=== PATIENT | female | born 1945 | race Caucasian/White ===

== ENCOUNTER 2017-12-29 01:48 | Outpatient (CLI) | payer MEDICARE, OTHER, SELFPAY ==
[2017-12-29 08:58] LABS: Anion Gap 9.4 mmol/L (3-11); BUN 20 mg/dL (7-18); CO2 29.6 mmol/L (21.0-32.0); CREATININE 1.24 mg/dL (0.55-1.02); Calcium 9.2 mg/dL (8.5-10.1); Chloride 104 mmol/L (98-107); Cholesterol 218 mg/dL (50-200); Estimated GFR 42.28 (mL/min/1.73m2); Glucose 97 mg/dL (70-100); HDL Cholesterol 53 mg/dL (40-60); LDL CHOLESTEROL 143 mg/dL (<100); Sodium 143 mmol/L (136-145); Triglyceride 132 mg/dL (30-150)
== END 2017-12-29 02:08 ==
PROVIDERS: PCP Family Medicine; Visit Provider Family Medicine
DX: I10 Essential (primary) hypertension (principal)
CPT/HCPCS: 36415; 80048; 80061; 83721

== ENCOUNTER 2018-01-08 00:46 | Outpatient (CLI) | payer MEDICARE, OTHER, SELFPAY ==
--- NOTE | 2018-01-08 15:22 | DI.MAMMO_ITS ---
SYMPTOM/DIAGNOSIS: SCREENING, Z12.31 MAMMOGRAMS: Mammograms were interpreted according to the usual protocol including computer analysis with CAD system, tomosynthesis and C view imaging. The breasts are of moderate density with fairly symmetrical distribution of fibroglandular tissue. There are multiple small, well circumscribed nodules seen in each breast which have been present on the previous examinations. There is a new 11 mm. in diameter, ovoid left retroareolar breast mass. This is not ideally visualized on routine views. Spot compression views and breast ultrasound are requested to evaluate this new retroareolar mass. CONCLUSION: New left retroareolar mass, well circumscribed and likely benign but malignancy not excluded. Spot compression views and ultrasound of the left breast recommended for further evaluation. Category 0. Breast density, category B. MQSA ASSESSMENT OF FINDINGS: Incomplete: Needs additional imaging evaluation. Category 0. Patient will receive a letter notifying them of these results. BI-RADS category B. There are scattered areas of fibroglandular density.
== END 2018-01-08 01:06 ==
PROVIDERS: PCP Family Medicine; Visit Provider Family Medicine
DX: Z12.31 Encounter for screening mammogram for malignant neoplasm of breast (principal); R92.8 Other abnormal and inconclusive findings on diagnostic imaging of breast
CPT/HCPCS: 77063; 77067

== ENCOUNTER 2018-01-14 01:08 | Outpatient (CLI) | payer MEDICARE, OTHER, SELFPAY ==
--- NOTE | 2018-01-14 11:28 | DI.COMBO_ITS ---
SYMPTOM/DIAGNOSIS: F/U ABNL MAMMO, NEW LT BREAST MASS LEFT BREAST ADDITIONAL VIEWS AND LEFT BREAST ULTRASOUND: Additional images are interpreted according to the usual protocol including tomosynthesis and 2D imaging. Compression spot films of the left breast were obtained today and reveal a small , well circumscribed area of nodularity in the subareolar portion of the breast. At ultrasound, a cluster of small cysts is demonstrated. There is no apparent solid lesion and nothing to suggest a malignancy. SUMMARY: A small cluster of subareolar cysts are demonstrated. A follow up ultrasound examination in 6 months is suggested for further review. Category 3. Breast density, category B. MQSA ASSESSMENT OF FINDINGS: Probably benign. Six month follow-up recommended. Category 3. Patient will receive a letter notifying them of these results. BI-RADS category B. There are scattered areas of fibroglandular density.
== END 2018-01-14 01:28 ==
PROVIDERS: PCP Family Medicine; Visit Provider Family Medicine
DX: R92.8 Other abnormal and inconclusive findings on diagnostic imaging of breast (principal); N60.12 Diffuse cystic mastopathy of left breast
CPT/HCPCS: 76642; 77063; 77067

== ENCOUNTER 2018-06-29 01:45 | Outpatient (CLI) | payer MEDICARE, OTHER, SELFPAY ==
[2018-06-29 11:35] LABS: Anion Gap 8.8 mmol/L (3-11); BUN 15 mg/dL (7-18); CO2 29.2 mmol/L (21.0-32.0); CREATININE 1.06 mg/dL (0.55-1.02); Chloride 104 mmol/L (98-107); Estimated GFR 50.54 (mL/min/1.73m2); Glucose 102 mg/dL (70-100); Potassium 4.3 mmol/L (3.5-5.1); Sodium 142 mmol/L (136-145); Vitamin B12 1322 pg/mL (193-986)
[2018-06-29 14:11] LABS: Vitamin D 25 Total 38.1 ng/ml (30-100)
== END 2018-06-29 02:05 ==
PROVIDERS: PCP Family Medicine; Visit Provider Family Medicine
DX: E55.9 Vitamin D deficiency, unspecified (principal); M54.30 Sciatica, unspecified side; N18.9 Chronic kidney disease, unspecified
CPT/HCPCS: 36415; 80048; 82306; 82607

== ENCOUNTER 2018-07-13 00:26 | Outpatient (CLI) | payer MEDICARE, OTHER, SELFPAY ==
--- NOTE | 2018-07-13 10:16 | DI.US_ITS ---
SYMPTOM/DIAGNOSIS: F/U ABNL MAMMO AND US, 6 MONTH F/U, R92.8 LEFT BREAST ULTRASOUND: Comparison is made with 01/14/18. There are again seen collections of simple cysts in the retroareolar region of the left breast. These all appear stable compared to the prior examination. No solid mass is seen sonographically. IMPRESSION: Stable left breast cysts. The patient should return in 6 months for yearly screening mammogram. Category 2. MQSA ASSESSMENT OF FINDINGS: Negative with benign findings. Category 2. Patient will receive a letter notifying them of these results.
== END 2018-07-13 00:46 ==
PROVIDERS: PCP Family Medicine; Visit Provider Family Medicine
DX: Z12.31 Encounter for screening mammogram for malignant neoplasm of breast (principal); R92.8 Other abnormal and inconclusive findings on diagnostic imaging of breast; N60.12 Diffuse cystic mastopathy of left breast
CPT/HCPCS: 76642

== ENCOUNTER 2018-12-28 02:34 | Outpatient (CLI) | payer MEDICARE, OTHER, SELFPAY ==
[2018-12-28 09:45] LABS: Anion Gap 8.7 mmol/L (3-11); BUN 18 mg/dL (7-18); CO2 27.3 mmol/L (21.0-32.0); CREATININE 1.07 mg/dL (0.55-1.02); Calcium 8.8 mg/dL (8.5-10.1); Chloride 108 mmol/L (98-107); Estimated GFR 49.99 (mL/min/1.73m2); Glucose 100 mg/dL (70-100); Sodium 144 mmol/L (136-145)
== END 2018-12-28 02:54 ==
PROVIDERS: PCP Family Medicine; Visit Provider Family Medicine
DX: N18.9 Chronic kidney disease, unspecified (principal)
CPT/HCPCS: 36415; 80048

== ENCOUNTER 2019-01-21 02:10 | Outpatient (CLI) | payer MEDICARE, OTHER, SELFPAY ==
--- NOTE | 2019-01-21 11:31 | DI.MAMMO_ITS ---
EXAM: MAMMO SCREENING CLINICAL HISTORY: screening Z12.39 TECHNIQUE: Mammograms were interpreted according to the usual protocol including computer analysis w [employer] CAD system, tomosynthesis and C-view imaging. COMPARISON: December 2017 FINDINGS: The breasts are of moderate density with fairly symmetrical distribution of fibroglandular tissue. M ultiple areas of nodularity are noted bilaterally, unchanged in appearance in comparison with previou s examinations including December 2017. No new mass or clumped microcalcification seen. IMPRESSION: No specific evidence of malignancy at this time. Routine screening examinations are suggested at year ly intervals due to the family history of breast carcinoma. Category 1, breast density category B. BI-RADS Cat 1 - Negative Breast Density - Category B - Scattered areas of fibroglandular density
== END 2019-01-21 02:30 ==
PROVIDERS: PCP Family Medicine; Visit Provider Family Medicine
DX: Z12.31 Encounter for screening mammogram for malignant neoplasm of breast (principal); Z80.3 Family history of malignant neoplasm of breast
CPT/HCPCS: 77063; 77067

== ENCOUNTER 2019-04-16 01:57 | Outpatient (CLI) | payer MEDICARE, OTHER, SELFPAY ==
--- NOTE | 2019-04-16 09:38 | DI.RAD_ITS ---
EXAM: XR LUMBAR SPINE COMPLETE CLINICAL HISTORY: New sided siactica and foot drop, previous surg. M21.372 FOOT DROP TECHNIQUE: COMPARISON: No exams were available for comparison FINDINGS: Five views were obtained. There are moderate degenerative changes of the SI joints. There is mild m ultilevel loss of disc space height. There are very prominent hypertrophic changes involving vertebr al endplates and facet joints throughout the lumbar region, the most prominent endplate osteophytes a re in the upper to mid lumbar spine. No evidence of spondylolysis or spondylolisthesis. No acute fr acture seen. IMPRESSION: Severe hypertrophic degenerative changes, no acute process.
== END 2019-04-16 02:17 ==
PROVIDERS: PCP Family Medicine; Visit Provider Family Medicine
DX: M21.372 Foot drop, left foot (principal); M54.42 Lumbago with sciatica, left side; M53.3 Sacrococcygeal disorders, not elsewhere classified; M47.26 Other spondylosis with radiculopathy, lumbar region
CPT/HCPCS: 72110

== ENCOUNTER 2019-04-30 03:48 | Outpatient (CLI) | payer MEDICARE, OTHER, SELFPAY ==
--- NOTE | 2019-04-30 11:45 | DI.MRI_ITS ---
EXAM: MR LUMBAR SPINE WO CLINICAL HISTORY: New onset L foot drop, L sided sciatica, M21.372, BILAT LEG PAIN TECHNIQUE: Multiplanar multisequence MRI was performed. COMPARISON: MRI - LUMBAR SPINE WO CONTRAST from 02/29/2016 XR LUMBAR SPINE COMPLETE from 04/16/2019 FINDINGS: The conus medullaris has a normal appearance and location. At L5-S1, there is disc desiccation. There are endplate degenerative signal changes. There is a dif fuse disc bulge. There are hypertrophic changes of the facets and ligament flavum. This causes mild to moderate central spinal canal stenosis. There is moderate right and mild left neural foraminal s tenosis. At L4-L5, there is disc desiccation. There is a diffuse disc bulge. There are hypertrophic changes of the facet joints. There is a synovial cyst arising from the right facet joints. It extends into the central spinal canal. These all contribute to cause mild to moderate narrowing of the central sp inal canal. There is a left lateral disc herniation. This causes severe left neural foraminal steno sis. There is moderately severe right neural foraminal stenosis. At L3-L4, there is disc desiccation. There is a diffuse disc bulge. There does appear to be a small central disc herniation. There are degenerative changes of the facets and ligamentum flavum. These all contribute to cause moderately severe central spinal canal stenosis. There is mild bilateral ne ural foraminal stenosis. At L2-L3, there is degenerative disc disease. There is a small central disc herniation. There are d egenerative changes of the facets. These all contribute to cause mild narrowing of the central spina l canal. There is no significant right neural foraminal stenosis. There is mild left neural foramin al stenosis. At L1-L2, there is disc desiccation. There are hypertrophic changes of the facets and ligamentum fla vum. These cause mild narrowing of the central spinal canal. No significant neural foraminal stenos is is seen. The patient has had an L5 laminectomy. IMPRESSION: Degenerative changes throughout the lumbar spine resulting in central spinal canal and neural foramin al stenosis as described above. Findings are most marked at L2-3, L3-4, and L4-5.
== END 2019-04-30 04:08 ==
PROVIDERS: PCP Family Medicine; Visit Provider Family Medicine
DX: M21.372 Foot drop, left foot (principal); M54.42 Lumbago with sciatica, left side; M79.604 Pain in right leg; M79.605 Pain in left leg; M51.17 Intervertebral disc disorders with radiculopathy, lumbosacral region; M48.07 Spinal stenosis, lumbosacral region
CPT/HCPCS: 72148

== ENCOUNTER 2019-08-13 23:24 | Observation (INO) | payer MEDICARE, OTHER, SELFPAY ==
--- NOTE | 2019-08-13 00:09 | DI.RAD_ITS ---
EXAM: XR PORTABLE CHEST AP CLINICAL HISTORY: general weaknes, ?pneumonia. TECHNIQUE: 2D digital imaging was performed. COMPARISON: CR CHEST 2 VIEWS PA,LAT from 01/28/2013 FINDINGS: LUNGS: Clear. No pleural abnormality seen. HEART: Normal. MEDIASTINUM: Normal. OTHER FINDINGS: None. IMPRESSION: No acute pulmonary findings. DATA REPOSITORY: RADIATION DOSE DELIVERED:
[2019-08-13 23:19] VITALS: BP 121/68; PULSE 115; RESP 16; TEMP 36.7; O2SAT 94
--- NOTE | 2019-08-13 23:36 | W.ED.GENAD ---
Discharge Plan Disposition Patient Disposition: [facility] INPATIENT Condition: Stable Discharge Details Chief Complaint: GenMedical Clinical Impression: Ambulatory dysfunction, Post-op pain Primary Care Provider: Matt Doss ED Provider: Magno Heredia Home Meds and New Rx's Prescriptions: No Action chgsuqjmzjyz-[id number]-jcomnh Tablet 1 tab PO HS RF: 0 calcium citrate-vitamin D3 [Citracal + D Maximum] 315 mg- 250 unit tablet 1 tab PO HS RF: 0 hydrochlorothiazide 25 mg tablet 12.5 mg PO HS RF: 0 Aleve PM 220-25 mg tablet 1 tab PO QPM PRNRF: 0 meclizine 25 MG tablet 25 mg PO PRN Qty: 20 RF: 2 acetaminophen 500 MG tablet 1,000 mg PO Q8H PRN RF: 0 tramadol 50 mg tablet 50 mg PO TID PRN (Reason: pain) Qty: 15 RF: 0 oxycodone 5 mg tablet 5 mg PO Q4H PRNRF: 0 sennosides-docusate sodium [Senna Plus] 8.6-50 mg tablet 2 tab-cap PO BID PRNRF: 0 polyethylene glycol 3350 17 gram powder in packet 17 gm PO BID RF: 0 gabapentin 300 mg capsule 300 mg PO QHS RF: 0 Medical Decision Making 74 yo female with hx of HTN, ckd, hld, who underwent posterior decompression L3-S1 decompressoin at [facility] on 08/09 and d/c'd to home with no home health comes in with with concern that he cannot care for her at home. She has had some intermittent confusion per described as not remembering if she took her meds specifically if she has taken her oxycodone or not. She is currently caox4 with no focal deficits, states has had general weakness and low back pain since d/c. Denies fevers, chills, headache, chest pain, shortness of breath, abdominal pain. Has no new focal motor or sensation deficits, has chronic left foot drop. She has well healing back incisions without evidence of infection. called ems as he did not feel he could continue to lift her and care for her. I suspect that she is generally weak and having pain from the surgery and side effect of the oxycodone could be causing the weakness and requires rehab. Will evaluate for possible uti and charlette and monitor. Given no focal deficits and no head trauma or headache do not feel head imaging indicated labs show wbc of 16 and crp of 17, esr pending, otherwise no significant findings and she remains stable. xray and UA unremarkable. Will discuss with spine at [facility] for consideration of possible SEA spoke with Dr. Craig at [facility] who was in the OR for this case. She did not feel transfer emergently for MRI was indicated given no focal deficits on exam and lab results could be expected post op and no fever. Spoke with Dr. Limon who will admit for ambulatory dysfunction post op pain and PT eval in AM Differential Diagnosis Differential Diagnosis: medication side effect, uti, dehydration Medical Records Medical records reviewed: Yes I reviewed the patient's medical records. Imaging Data Radiologic Study: Attestation: I personally reviewed and interpreted this imaging study as follows: Imaging: X-Ray Radiologist's impression: IMPRESSION: No evidence for acute abnormality in the chest. Lab Data Lab results reviewed: Yes I reviewed the patient's lab results. HPI General Mode of arrival: EMS. Date/Time Provider Initiated Documentation: 08/13/19 23:28. Limitations to Documentation: no limitations. Information obtained by: patient and family. History of Present Illness 74 year old F presents to the emergency department with the chief complaint of general weakness and low back pain, described as moderate, and it has been constant. No relieving factors improve symptom(s), No exacerbating factors reported . Related Data Home Medications Medication Instructions Recorded Confirmed meclizine 25 mg PO PRN #20 tab 11/22/14 08/13/19 acetaminophen 1,000 mg PO Q8H PRN 06/06/16 08/13/19 calcium citrate 315 mg-vitamin D3 1 tab PO HS 12/31/18 08/13/19 250 unit tablet dbqeuodzlhyn-qhuzbpfg-eocqfs 1 tab PO HS 12/31/18 08/13/19 hydrochlorothiazide 25 mg tablet 12.5 mg PO HS tab 04/16/19 08/13/19 naproxen 220 mg-diphenhydramine 25 1 tab PO QPM PRN 04/16/19 08/13/19 mg tablet tramadol 50 mg tablet 50 mg PO TID PRN #15 tab 07/08/19 08/13/19 gabapentin 300 mg capsule 300 mg PO QHS 08/12/19 08/13/19 oxycodone 5 mg tablet 5 mg PO Q4H PRN 08/12/19 08/13/19 polyethylene glycol 3350 17 gram 17 gm PO BID 08/12/19 08/13/19 oral powder packet sennosides 8.6 mg-docusate sodium 2 tab-cap PO BID PRN tab 08/12/19 08/13/19 50 mg tablet Previous Rx's Medication Instructions Recorded tramadol 50 mg tablet 50 mg PO TID PRN #15 tab 07/08/19 Allergies Allergy/AdvReac Type Severity Reaction Status Date / Time atorvastatin AdvReac Intermediate cramps Verified 08/13/19 23:27 pravastatin AdvReac Intermediate stiffness Verified 08/13/19 23:27 General Stated Complaint: GenMedical ÓSCAR: 3 Review of Systems All systems reviewed & are unremarkable except as noted in HPI and below Constitutional Constitutional: Denies chills and Denies fever(s) Cardiovascular Cardiovascular: Denies chest pain and Denies dyspnea Respiratory Respiratory: Denies cough and Denies dyspnea Gastrointestinal Gastrointestinal: Denies abdominal pain, Denies nausea and Denies vomiting Musculoskeletal Musculoskeletal: Denies joint swelling Psychiatric Psychiatric: Denies depression [facility] Medical History (Updated 08/14/19 @ 01:30 by Magno Heredia MD) 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 Moyer excellent result Essential hypertension (Acute) Foot drop, left (Chronic 09/27/16) mild left, following back surgery 05/2016 Hyperlipidemia (Chronic 03/17/03) RISK 14% in 06/2010; recalculated 05/2015: 13.8% Meniere's disease (Chronic 07/10/11) hydrochlorothiazide therapy Obesity (Chronic 01/12/13) GOAL 200 Primary osteoarthritis of right knee (Chronic 08/08/16) Spinal stenosis of lumbar region with neurogenic claudication (Resolved) Vitamin D deficiency (Chronic 11/08/16) Surgical History (Updated 08/12/19 @ 11:25 by Alyx Rea RN) Biopsy of breast (03/17/89) laminectomy L4 (06/04/16) Bilateral laminectomy L4-5 with medial facetectomy; [facility] [place] Dr Matta Ligation of fallopian tube Status post lumbar spine surgery for decompression of spinal cord (Acute 08/10/19) L3-S1 Family History Mother , breast ca at age 83. Breast cancer Father , cerebral hemor at age 63. No problems noted. Social History (Updated 12/31/18 @ 13:46 by Deysi Perkins LPN) Smoking/Tobacco Use Status: Never Alcohol Intake: never Drug use: Never Household members: spouse Housing: house Number of Children: 2 Communication Needs: None current occupation: previously worked in [employer] Pets and animals: Yes Pets and animals: dog(s) Current gender identity: female What is your relationship status?: How often do you talk on the phone with friends or family?: three or more times per week Panel score (0-1 are the most socially isolated patients): 2 What type of physical activity do you participate in: none Seatbelt use: always Drive intox or ride 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 Water heater temp set <120 deg: Yes Working smoke detector in home: Yes Fire extinguisher in home: Yes Carbon monox detector in home: Yes Do you feel safe at home: Yes Do you feel safe in your relationship?: Yes Exam Const General: no acute distress Orientation: alert HENMT Head: normal to inspection Ears: external ears normal General nose exam: external nose normal Mouth: moist mucous membranes Eyes General: appearance normal, both eyes and all related structures Neck Neck: normal visual inspection Resp Effort & Inspection: normal respiratory effort and able to speak in complete sentences Cardio Rate: regular rate Back/Spine/Pelvis Back: no CVA tenderness Skin General skin exam: no rashes or lesions noted Neuro General: patient alert and patient oriented x3 Extrem General: normal to inspection Psych Mental Status: mental status grossly normal Course Vital Signs Vital signs: Vital Signs Temperature 36.7 C 08/13/19 23:19 Pulse 115 H 08/13/19 23:19 Respiratory Rate 16 08/13/19 23:19 Blood Pressure 121/68 08/13/19 23:19 Pulse Oximetry 94 L 08/13/19 23:19 Temperature 36.7 C 08/13/19 23:19 Temperature Source Skin 08/13/19 23:19 Pulse 115 H 08/13/19 23:19 Respiratory Rate 16 08/13/19 23:19 Blood Pressure 121/68 08/13/19 23:19 Blood Pressure Position Supine 08/13/19 23:19 Pulse Oximetry 94 L 08/13/19 23:19 Oxygen Delivery Method Room Air 08/13/19 23:19 Oxygen Flow Rate 0 08/13/19 23:19 Pain Level 2 08/13/19 23:19
[2019-08-14] VITALS (7 sets, daily range): BP systolic 107–151; BP diastolic 63–82; PULSE 94–105; RESP 15–19; TEMP 37.2–38.2; O2SAT 93–97
[2019-08-14] MEDS: Normal Saline 1,000 ML 1000 ML IV (00:03)
[2019-08-14] MEDS: oxyCODONE 5 MG TAB PO ×4 (00:03→15:45)
--- NOTE | 2019-08-14 00:14 | DI.VRAD_ITS ---
PROCEDURE INFORMATION: Exam: XR Chest, 1 View Exam date and time: 08/13/2019 12:05 AM Age: 74 years old Clinical indication: Other: General weakness TECHNIQUE: Imaging protocol: XR of the chest Views: 1 view. Other technique: Portable exam. COMPARISON: CR CHEST 2 VIEWS PA,LAT 01/28/2013 10:48 AM FINDINGS: Lungs: Unremarkable. No consolidation. Pleural space: Unremarkable. No pleural effusion. No pneumothorax. Heart/Mediastinum: Mild cardiomegaly is unchanged. Bones/joints: Unremarkable. IMPRESSION: No evidence for acute abnormality in the chest. COMMENTS: Preliminary interpretation is based on receipt of 1 image(s). A final report will be issued subsequently. Dictated and Authenticated by: Madina Pierson MD. Ordering:TRACEE Kiran MD
[2019-08-14 00:20] LABS: Abs Immature Grans 0.04 k/cumm (0.0-0.09); Absolute Basophil Count 0.02 k/cumm (0.0-0.2); Absolute Eosinophil Count 0.02 k/cumm (0.0-0.7); Absolute Lymphocyte Count 2.32 k/cumm (1.2-3.4); Basophils % 0.1; Eosinophils % 0.1; HCT 34.6 % (36.0-46.0); HGB 11.4 g/dL (12.0-15.5); Immature Grans % 0.2 %; Lymphocytes % 14.1; Mean Corp. HGB Concentration 32.9 g/dL (32.0-36.0); Mean Corpuscular Hemoglobin 31.4 pg (27.0-33.0); Mean Corpuscular Volume 95.3 fL (80-95); Mean Platelet Volume 9.4 fL (8.0-11.0); Monocytes % 13.9; Neutrophils % 71.6; Platelet Count 271 x1000/uL (130-400); RBC 3.63 m/cumm (4.00-5.20); White Blood Cell Count 16.44 k/cumm (4.4-10.8)
[2019-08-14 00:32] LABS: ALT 33 U/L (14-59); AST 35 U/L (15-37); Albumin 3.4 g/dL (3.4-5.0); Alkaline Phosphatase 71 U/L (46-116); Anion Gap 9.9 mmol/L (3-11); BUN 14 mg/dL (7-18); CO2 28.1 mmol/L (21.0-32.0); CREATININE 1.42 mg/dL (0.55-1.02); Calcium 8.8 mg/dL (8.5-10.1); Chloride 97 mmol/L (98-107); Estimated GFR 35.97 (mL/min/1.73m2); Glucose 134 mg/dL (74-106); Magnesium 2.1 mg/dL (1.8-2.4); Potassium 3.2 mmol/L (3.5-5.1); Sodium 135 mmol/L (136-145); Total Protein 7.7 g/dL (6.4-8.2)
[2019-08-14 00:44] LABS: Bilirubin Negative (Negative); Blood Trace-intact (Negative); Clarity Clear (Clear); Glucose Negative (Negative); Ketones 15 mg/dL (Negative); Leukocyte Esterase Negative (Negative); Nitrite Negative (Negative); Urobilinogen 0.2 EU/dL (Up TO 0.2)
[2019-08-14 00:45] LABS: Bacteria Negative HPF (Negative); Casts 3-5 Hyaline LPF (Negative); Crystals Negative HPF (Negative); Epithelial Cells Negative HPF (Negative); Mucus Negative (Negative); Other Cells Negative (Negative); RBC 0-2 HPF (0-2)
[2019-08-14 00:46] LABS: C & S Indicated? No
[2019-08-14 00:49] LABS: Absolute Monocyte Count 2.29 k/cumm (0.11-0.7); Absolute Neutrophil Count 11.77 k/cumm (1.2-6.7)
[2019-08-14 00:50] LABS: Diff Comment Agrees w/ Instrument; RBC Morphology Normal
[2019-08-14 01:10] LABS: C-Reactive Protein 17.36 mg/dL (0.0-0.3)
--- NOTE | 2019-08-14 01:36 | W.PM.HP.N ---
Date of service: 08/14/19 Time of Service: 01:36 Assessment and Plan Assessment and plan (1) Ambulatory dysfunction: Start date: 08/14/19 Status: Acute Assessment and plan: This is a 74-year-old lady admitted for falls and increased weakness status post surgery with lumbar spine decompression from L3-S1. This is a repeat surgery having had her first surgery performed 2016. She has lower recovery from the surgery and does need reevaluation by physical therapy and education for herself and on how to safely ambulate at home. She is having increased pain the second surgery which was more extensive. She does have a slight fever and her sed rate and CRP are elevated with her WBC and [facility] was aware of this not thinking that she need to be transferred for further evaluation at this time. If she is not improving we should consider transfer for MRI and reevaluation by the surgical team. She will start out with observation with physical therapy. (2) Spinal stenosis of lumbar region with neurogenic claudication: Status: Chronic Assessment and plan: Severe progressive with left foot drop now status post second surgery for decompression. (3) Foot drop, left: Status: Chronic Assessment and plan: Permanent partial left foot drop from spinal stenosis hopefully now leads to be stabilized status post second decompression surgery. Physical therapy needs to address her foot drop which may cause her to stumble and fall at home. She does not report wearing an AFO. (4) Chronic kidney disease: Status: Chronic Assessment and plan: Slightly exacerbated with IV hydration initiated along with potassium supplement with patient having hypokalemia on chronic diuretic. Qualifiers: Chronic kidney disease stage: stage 3 (moderate) Qualified Code(s): N18.3 - Chronic kidney disease, stage 3 (moderate) (5) Essential hypertension: Status: Chronic Assessment and plan: Slightly exacerbated with pain and immobilization. Monitor on usual medical regimen as the patient rehab with physical therapy. Consider adding beta-helen to her regimen if she continued with tachycardia and increased blood pressure. This exacerbation of her blood pressure control may be secondary to pain as she recovers. History of Present Illness History of Present Illness Chief Complaint: Back pain with falling status post lumbar spine decompression Narrative: This is a 74-year-old lady who had a previous decompression for spinal stenosis 06/06/2016 of the L4-S1 with good results. She has a left foot drop and worsening symptoms again this year prompting decompression again but more extensively from L3-S1 08/10/2019 with more extensive dissection and after this surgery the patient has been having more pain and slower recovery. She had a fall at home when she collapsed trying to stand up and feels that her legs are not as strong as after her first surgery. She denies any fever or localized swelling over her back where she had surgery. She has been having increased peripheral edema with decreased activity. She is overweight. Her was having difficulty caring for her and she reported to the ED for evaluation. After evaluation in the ED and discussion with [facility] neurosurgeons it was thought that she did not require transfer but would require observation with evaluation by physical therapy to help with safe ambulation at home. Her could also be involved with this to learn techniques for assisting his at home. The patient is otherwise generally healthy though she does have a history of vertigo and takes meclizine as needed. When she fell at home the evening prior to admission she was not vertiginous. She has no focal neurological planes other than her left foot drop which is only partial. She does have a long history of spinal stenosis prior to her surgeries. Review of Systems Narrative: 13 point review of systems otherwise unrevealing or stable. [facility], LAT[facility] Medical History Back pain of lumbar region with sciatica (Chronic 01/16/16) incr Nov 2015; MRI [facility] 1995; + MRI 02/201603/20/[address] Moyer excellent result Essential hypertension (Acute) Foot drop, left (Chronic 09/27/16) mild left, following back surgery 05/2016 Hyperlipidemia (Chronic 03/17/03) RISK 14% in 06/2010; recalculated 05/2015: 13.8% Meniere's disease (Chronic 07/10/11) hydrochlorothiazide therapy Obesity (Chronic 01/12/13) GOAL 200 Primary osteoarthritis of right knee (Chronic 08/08/16) Spinal stenosis of lumbar region with neurogenic claudication (Resolved) Vitamin D deficiency (Chronic 11/08/16) Surgical History Biopsy of breast (03/17/89) laminectomy L4 (06/04/16) Bilateral laminectomy L4-5 with medial facetectomy; [facility] Dr Matta Ligation of fallopian tube Status post lumbar spine surgery for decompression of spinal cord (Acute 08/10/19) L3-S1 Family History Mother , breast ca at age 83. Breast cancer Father , cerebral hemor at age 63. No problems noted. Social History Smoking/Tobacco Use Status: Never Alcohol Intake: never Drug use: Never Household members: spouse Housing: house Number of Children: 2 Communication Needs: None current occupation: previously worked in [employer] Pets and animals: Yes Pets and animals: dog(s) Current gender identity: female What is your relationship status?: How often do you talk on the phone with friends or family?: three or more times per week Panel score (0-1 are the most socially isolated patients): 2 What type of physical activity do you participate in: none Seatbelt use: always Drive intox or ride w/intox vacuum truck driver: No Water heater temp set <120 deg: Yes Working smoke detector in home: Yes Fire extinguisher in home: Yes Carbon monox detector in home: Yes Do you feel safe at home: Yes Do you feel safe in your relationship?: Yes Meds Home Medications and Allergies Home Medications Medication Instructions Recorded Confirmed Type meclizine 25 mg PO PRN #20 tab 11/22/14 08/13/19 History acetaminophen 1,000 mg PO Q8H PRN 06/06/16 08/13/19 History calcium citrate 315 mg-vitamin D3 1 tab PO HS 12/31/18 08/13/19 History 250 unit tablet [id number]-jhtllowf-lkdtpe 1 tab PO HS 12/31/18 08/13/19 History hydrochlorothiazide 25 mg tablet 12.5 mg PO HS tab 04/16/19 08/13/19 History naproxen 220 mg-diphenhydramine 25 1 tab PO QPM PRN 04/16/19 08/13/19 History mg tablet tramadol 50 mg tablet 50 mg PO TID PRN #15 tab 07/08/19 08/13/19 Rx gabapentin 300 mg capsule 300 mg PO QHS 08/12/19 08/13/19 History oxycodone 5 mg tablet 5 mg PO Q4H PRN 08/12/19 08/13/19 History polyethylene glycol 3350 17 gram 17 gm PO BID 08/12/19 08/13/19 History oral powder packet sennosides 8.6 mg-docusate sodium 2 tab-cap PO BID PRN tab 08/12/19 08/13/19 History 50 mg tablet Allergies Allergy/AdvReac Type Severity Reaction Status Date / Time atorvastatin AdvReac Intermediate cramps Verified 08/13/19 23:27 pravastatin AdvReac Intermediate stiffness Verified 08/13/19 23:27 Exam Narrative Exam Narrative: General: Patient appears appropriate for age, alert and oriented x4 and in no acute distress resting in bed. She is moderately obese. HEENT: Normocephalic with eyes revealing pupils equal and reactive to light symmetrically, extraocular movement intact and sclera anicteric. Oropharynx with moist mucosa. Ears normal. Neck: Supple without JVD. Back: Stooped posture with no CVA tenderness. Lungs: Clear to auscultation percussion. Breast: Exam deferred. Heart: Regular rate and rhythm without murmurs or gallops appreciated. Abdomen: Obese contour, soft and nontender to palpation without palpable hepatosplenomegaly. Genitalia/rectal: Exam deferred. Extremity: Nonpitting edema over over both lower extremities with peripheral pulses intact and good cap refill. There is no clubbing or cyanosis. There is moderate osteoarthritic changes of her joints. Skin: Normal color, warm over upper extremities but hot to touch over trunk and lower extremities, dry. Neuro: Cranial nerves II through XII grossly intact, motor intact except for slight decreased strength to dorsiflexion of the left foot being 4 out of 5. Sensory grossly intact. There is no tremor. Psych: Normal thought processes and normal mood. Remote and recent memory intact. Results Imaging Imaging Studies: Exam: XR Chest, 1 View Exam date and time: 08/13/2019 12:05 AM Age: 74 years old Clinical indication: Other: General weakness TECHNIQUE: Imaging protocol: XR of the chest Views: 1 view. Other technique: Portable exam. COMPARISON: CR CHEST 2 VIEWS PA,LAT 01/28/2013 10:48 AM FINDINGS: Lungs: Unremarkable. No consolidation. Pleural space: Unremarkable. No pleural effusion. No pneumothorax. Heart/Mediastinum: Mild cardiomegaly is unchanged. Bones/joints: Unremarkable. IMPRESSION: No evidence for acute abnormality in the chest. COMMENTS: Preliminary interpretation is based on receipt of 1 image(s). A final report will be issued subsequently. Dictated and Authenticated by: Madina Pierson MD. Exam: XR Lumbosacral Spine, 4 or 5 Views Exam date and time: 08/14/2019 1:47 AM Age: 74 years old Clinical indication: Low back pain; Prior surgery; Surgery date: 3-7 days post-operative; Surgery type: Laminectomy 08/10/19 TECHNIQUE: Imaging protocol: XR of the lumbosacral spine, 4 or 5 views. COMPARISON: CR XR LUMBAR SPINE COMPLETE 04/16/2019 9:28 AM FINDINGS: Vertebrae: Normal. No acute fracture. Normal alignment. Multilevel degenerative changes. Degenerative changes of right hip joint. Soft tissues: Vascular calcifications. IMPRESSION: No acute findings. Dictated and Authenticated by: Matt Connell MD. Labs Result diagrams: 08/13/19 23:33 08/13/19 23:33 Labs: Laboratory Results - last 24 hr 08/13/19 08/13/19 08/13/19 23:33 23:33 23:51 WBC 16.44 H RBC 3.63 L Hgb 11.4 L Hct 34.6 L MCV 95.3 H MCH 31.4 MCHC 32.9 RDW 12.0 Plt Count 271 MPV 9.4 Immature Gran % 0.2 Neutrophils % 71.6 Lymphocytes % 14.1 Monocytes % 13.9 Eosinophils % 0.1 Basophils % 0.1 Absolute Neutrophils 11.77 H Absolute Lymphocytes 2.32 Absolute Monocytes 2.29 H Absolute Eosinophils 0.02 Absolute Basophils 0.02 Differential Comment Agrees w/ instrument RBC Morphology Normal Sodium 135 L Potassium 3.2 L Chloride 97 L Carbon Dioxide 28.1 Anion Gap 9.9 BUN 14 Creatinine 1.42 H Estimated GFR/1.73 m2 35.97 Glucose 134 H Calcium 8.8 Magnesium 2.1 Total Bilirubin 1.0 AST 35 ALT 33 Alkaline Phosphatase 71 C-Reactive Protein Total Protein 7.7 Albumin 3.4 Urine Color Yellow Urine Clarity Clear Urine pH 6.0 Ur Specific [place] 1.020 Urine Protein Trace H Urine Ketones 15 H Urine Blood Trace-intact H Urine Nitrite Negative Urine Bilirubin Negative Urine Urobilinogen 0.2 Ur Leukocyte Esterase Negative Urine RBC 0-2 Urine WBC 3-5 Ur Epithelial Cells Negative Urine Crystals Negative Urine Bacteria Negative Urine Casts 3-5 hyaline Urine Mucus Negative Urine Other Negative Ur Culture Indicated? No Urine Glucose Negative 08/14/19 00:00 WBC RBC Hgb Hct MCV MCH MCHC RDW Plt Count MPV Immature Gran % Neutrophils % Lymphocytes % Monocytes % Eosinophils % Basophils % Absolute Neutrophils Absolute Lymphocytes Absolute Monocytes Absolute Eosinophils Absolute Basophils Differential Comment RBC Morphology Sodium Potassium Chloride Carbon Dioxide Anion Gap BUN Creatinine Estimated GFR/1.73 m2 Glucose Calcium Magnesium Total Bilirubin AST ALT Alkaline Phosphatase C-Reactive Protein 17.36 H Total Protein Albumin Urine Color Urine Clarity Urine pH Ur Specific [place] Urine Protein Urine Ketones Urine Blood Urine Nitrite Urine Bilirubin Urine Urobilinogen Ur Leukocyte Esterase Urine RBC Urine WBC Ur Epithelial Cells Urine Crystals Urine Bacteria Urine Casts Urine Mucus Urine Other Ur Culture Indicated? Urine Glucose Last Vital Signs Temp 36.7 C 08/13/19 23:19 Pulse 105 H 08/14/19 00:40 Resp 18 08/14/19 00:41 BP 126/63 08/14/19 00:40 Pulse Ox 93 L 08/14/19 00:40 COVID-19 Screening In the past 14 days, have you traveled outside of [place] or [place]?: NO Had IN PERSON contact w/suspected or confirmed C-19 person: No
[2019-08-14 01:41] LABS: ESR 101 mm/hr (0-30)
--- NOTE | 2019-08-14 02:10 | DI.RAD_ITS ---
EXAM: XR LUMBAR SPINE COMPLETE CLINICAL HISTORY: post op laminectomy pain TECHNIQUE: COMPARISON: CR XR LUMBAR SPINE COMPLETE from 04/16/2019 FINDINGS: Five views were obtained. Prior laminectomy noted at L4 and L5. There is a slight left convex lumba r scoliosis. There are very prominent hypertrophic degenerative changes of the vertebral endplates f acet joints throughout. Mild narrowing of the intervertebral disc spaces also noted throughout lumba r spine consistent with disc degeneration. No evidence acute fracture. No gross spondylolysis or sp ondylolisthesis as visualized. IMPRESSION: Prior laminectomy noted. No other acute change. Severe hypertrophic degenerative changes and eviden ce of disc degeneration noted.
--- NOTE | 2019-08-14 02:11 | DI.VRAD_ITS ---
PROCEDURE INFORMATION: Exam: XR Lumbosacral Spine, 4 or 5 Views Exam date and time: 08/14/2019 1:47 AM Age: 74 years old Clinical indication: Low back pain; Prior surgery; Surgery date: 3-7 days post-operative; Surgery type: Laminectomy 08/10/19 TECHNIQUE: Imaging protocol: XR of the lumbosacral spine, 4 or 5 views. COMPARISON: CR XR LUMBAR SPINE COMPLETE 04/16/2019 9:28 AM FINDINGS: Vertebrae: Normal. No acute fracture. Normal alignment. Multilevel degenerative changes. Degenerative changes of right hip joint. Soft tissues: Vascular calcifications. IMPRESSION: No acute findings. Dictated and Authenticated by: Matt Connell MD. Ordering:TRACEE Kiran MD
[2019-08-14] MEDS: POTASSIUM CHLORIDE/0.9% NACL 1,000 ML 125 MEQ IV ×2 (04:19→13:35)
[2019-08-14] MEDS: Normal Saline Flush 10 ML SYR IVP (04:20)
[2019-08-14 07:57] LABS: HCT 32.3 % (36.0-46.0); HGB 10.6 g/dL (12.0-15.5); Mean Corp. HGB Concentration 32.8 g/dL (32.0-36.0); Mean Corpuscular Hemoglobin 31.3 pg (27.0-33.0); Mean Corpuscular Volume 95.3 fL (80-95); Platelet Count 268 x1000/uL (130-400); RBC 3.39 m/cumm (4.00-5.20); White Blood Cell Count 12.83 k/cumm (4.4-10.8)
[2019-08-14 08:25] LABS: ALT 27 U/L (14-59); AST 30 U/L (15-37); Alkaline Phosphatase 61 U/L (46-116); Anion Gap 7.6 mmol/L (3-11); BUN 14 mg/dL (7-18); Bilirubin, Total 0.9 mg/dL (0.2-1.0); CO2 27.4 mmol/L (21.0-32.0); CREATININE 1.13 mg/dL (0.55-1.02); Calcium 8.3 mg/dL (8.5-10.1); Chloride 101 mmol/L (98-107); Estimated GFR 46.82 (mL/min/1.73m2); Glucose 107 mg/dL (74-106); Potassium 3.4 mmol/L (3.5-5.1); Sodium 136 mmol/L (136-145); TSH (W/Ref FT4) 1.31 uIU/mL (0.36-3.74)
--- NOTE | 2019-08-14 09:33 | NT_ITS ---
Date of service: 08/14/19 Time of Service: 09:33 PT Notes Visit Reasons: AMBULATORY DIFFICULTIES, POST-OPERATIVE PAIN Nursing advised patient is being transferred [place] [facility] so PT eval not necessary.
--- NOTE | 2019-08-14 09:33 | PT.INNT ---
Date of service: 08/14/19 Time of Service: 09:33 PT Notes Visit Reasons: AMBULATORY DIFFICULTIES, POST-OPERATIVE PAIN Nursing advised patient is being transferred to [facility], so PT eval not necessary.
--- NOTE | 2019-08-14 09:34 | PT.INTREAT ---
Date of service: 08/14/19 Time of Service: 08:30 PT Notes Visit Reasons: AMBULATORY DIFFICULTIES, POST-OPERATIVE PAIN
--- NOTE | 2019-08-14 10:11 | DSE_ITS ---
DS: Diagnosis Discharge Diagnosis (1) Ambulatory dysfunction: Status: Acute Asessment and Plan: increased weakness and increased pain in her back w/ radicular pain in her legs post lumbar decompression surgery 08/10/2019. We are unable to perform MRI over the weekend in setting of low grade fever, leukocytosis and ESR and CRP, a post operative infection needs to be ruled out. [place] [facility] [place]. (2) Spinal stenosis of lumbar region with neurogenic claudication: Status: Chronic Asessment and Plan: as above. MRI is needed to assess for any post operative infection. Orthopedics has accepted the patient in [place] [facility] At the time of discharge I was awaiting return phone call from [facility] [place] to notify them of the new low grade fever and to determine whether or not they want me to initiate empiric antibiotics targeted towards Staph. (3) Foot drop, left: Status: Chronic Asessment and Plan: unchanged since her repeat lumbar decompression surgery (4) Chronic kidney disease: Status: Chronic Asessment and Plan: creatinine now down to 1.13 which is her baseline (peaked at 1.42 last night but has responded to iv fluids) (5) Essential hypertension: Status: Chronic Asessment and Plan: BP mildly elevated since admission at 151/77; patient now back on her HCTZ. She should not be routinely on an NSAID despite her lumbar DJD because of her CKD and HTN. Discharge Plan Disposition Patient Disposition: [facility] Condition: Stable Discharge Details Chief Complaint: GenMedical Clinical Impression: Ambulatory dysfunction, Post-op pain Reason For Visit: AMBULATORY DIFFICULTIES, POST-OPERATIVE PAIN Admit Date/Time: 08/14/19 01:27 Admit Provider: Jose Limon Attending Provider: Jose Limon Primary Care Provider: Matt Doss ED Provider: Magno Heredia Hospital Course Hospital Course: 74-year-old female with a history of essential hypertension, chronic kidney disease, hyperlipidemia, lumbar degenerative disc disease with spinal stenosis with prior lumbar decompression surgery for spinal stenosis in June 06, 2016 of L4-S1 more underwent recent repeat decompression surgery from L3-S1 on August 10, 2019 performed at [facility]. Since returning home she has had increasing lower back pain and leg weakness causing her to fall at home. She has had a left foot drop which she had prior to her repeat lumbar decompression. She was admitted last night after being evaluated the emergency department by Dr. Magno Heredia and subsequently admitted by the laboratory scientist Dr. Jose Limon. X-ray of her lumbar spine showed no acute abnormalities. Patient's had no fever or rigors although she was noted to have an elevated WBC count of 16,000 and a high CRP of 17.3 with a sed rate of 101. Dr. Heredia spoke with the orthopedic surgical fellow on-call from [facility], Dr. Infante who felt that there was no need for emergent transfer last night that the patient could be admitted to our facility for pain control and physical therapy. Dr. Heredia did express his concerns that we have no MRI availability over the weekend to evaluate her lumbar spine. Because of the elevated inflammatory markers further work-up for other sources of infection w ere pursued including a chest x-ray that showed no acute pathology and a urinalysis that was negative for UTI. She was felt to be mildly dehydrated and her labs demonstrated hypokalemia with a potassium of 3.2 probably caused by her chronic blood pressure medication of hydrochlorothiazide. Her magnesium level is normal at 2.1 and her creatinine was elevated 1.42. Dr. Limon put her on IV fluids give her potassium supplementation. Blood cultures were obtained urine culture was also ordered although her urinalysis was not consistent with UTI. She also had no urinary symptoms. She had no symptoms of cough or dyspnea. Screening COVID-19 test was ordered although she is not a person under investigation this was done as a matter of routine on all the inpatients. She was placed on her usual dose of gabapentin hydrochlorothiazide potassium supplementation given IV fluids with potassium she was also given PRN pain medications including oxycodone naproxen admitted to the hospital for pain control and physical therapy. On the morning of August 14, 2019 [facility]'s transfer center called and indicated that orthopedics was requesting the patient be transferred back to them. At this time a bed is pending but the patient has been accepted to the service of Dr. Anatoly Gamble. Repeat labs this morning continues to show leukocytosis although somewhat improved at 12,830. She remains mildly anemic with a hemoglobin 10.6 g. Potassium remains low at 3.4 but there is been an improvement in her creatinine down to 1.13. Patient is now febrile with a low-grade temperature 38.2. Blood pressure is hypertensive at 151/77 with a pulse of 105 respiratory rate of 18 and a pulse oximetry of 95% room air. Blood cultures and urine cultures are pending at this time. COVID-19 nasopharyngeal swab for PCR is pending although she has no symptoms and no exposures that she is aware. Home Meds and New Rx's Prescriptions: Continued onlkiquopmgy-xuznmrar-zvqagb Tablet 1 tab PO HS RF: 0 calcium citrate-vitamin D3 [Citracal + D Maximum] 315 mg- 250 unit tablet 1 tab PO HS RF: 0 hydrochlorothiazide 25 mg tablet 12.5 mg PO HS RF: 0 Aleve PM 220-25 mg tablet 1 tab PO QPM PRNRF: 0 meclizine 25 MG tablet 25 mg PO PRN Qty: 20 RF: 2 acetaminophen 500 MG tablet 1,000 mg PO Q8H PRN RF: 0 tramadol 50 mg tablet 50 mg PO TID PRN (Reason: pain) Qty: 15 RF: 0 oxycodone 5 mg tablet 5 mg PO Q4H PRNRF: 0 sennosides-docusate sodium [Senna Plus] 8.6-50 mg tablet 2 tab-cap PO BID PRNRF: 0 polyethylene glycol 3350 17 gram powder in packet 17 gm PO BID RF: 0 gabapentin 300 mg capsule 300 mg PO QHS RF: 0 Discharge Instructions Activity:: Activity as Tolerated Equipment/Supplies:: No Equipment Needed Diet:: Normal Diet DS: Summary Status at Discharge Functional status at discharge: uses cane/walker Overall status at discharge: patient is not back to baseline Mental Status: mental status grossly normal Speech and Movement: speech and movement normal Mood: congruent mood Affect: normal affect Time Spent with Patient providing and/or coordinating discharge services: Greater than 30 minutes Specific discharge activities: Multiple phone calls to [facility], discussion examination of the patient, review of her case with nursing staff, review of her labs and x-rays, discussion with laboratory scientist, review of her medications Exam Narrative Exam Narrative: Elderly female lying in bed in semi-lanza position in moderate pain. Examination of her spine reveals tenderness over the surgical site. Build back her postoperative bandage to look at the wound. There is some slight pinkness over the surgical wound. Sutures are intact. There is no purulent drainage. No induration. Psych Mental Status: mental status grossly normal Speech and Movement: speech and movement normal Mood: congruent mood Affect: normal affect DS: Data Vitals/I&O Vitals and I&O: Vital Signs Temperature 38.2 C H 08/14/19 07:30 Temperature Source Tympanic 08/14/19 07:30 Pulse 105 H 08/14/19 07:30 Pulse Rhythm Regular 08/14/19 03:27 Respiratory Rate 18 08/14/19 07:30 Respiratory Effort Non-Labored 08/14/19 03:27 Respiratory Depth Normal 08/14/19 03:27 Respiratory Pattern Normal 08/14/19 03:27 Blood Pressure 151/77 H 08/14/19 07:30 Blood Pressure Position Supine 08/13/19 23:19 Pulse Oximetry 95 08/14/19 07:30 Oxygen Delivery Method Room Air 08/14/19 07:30 Oxygen Flow Rate 0 08/14/19 07:30 Pain Level 3 08/14/19 07:30 Intake & Output 08/13/19 08/13/19 08/14/19 11:59 23:59 11:59 Intake Total 210 / 210 Output Total 300 / 300 Balance -90 / -90 Weight 96.1 kg 96.5 kg Intake: IV 10 / 10 Oral 200 / 200 Output: Urine 300 / 300 Other: Urine Color Straw Urine Appearance Clear Voiding Methods Bedside Commode Data Completed and Pending Labs on day of discharge: Labs from last 24 hours 08/14/19 08/14/19 08/14/19 07:33 07:33 02:45 WBC 12.83 H RBC 3.39 L Hgb 10.6 L Hct 32.3 L MCV 95.3 H MCH 31.3 MCHC 32.8 RDW 12.0 Plt Count 268 MPV 9.0 Immature Gran % Neutrophils % Lymphocytes % Monocytes % Eosinophils % Basophils % Absolute Neutrophils Absolute Lymphocytes Absolute Monocytes Absolute Eosinophils Absolute Basophils Differential Comment RBC Morphology ESR Sodium 136 Potassium 3.4 L Chloride 101 Carbon Dioxide 27.4 Anion Gap 7.6 BUN 14 Creatinine 1.13 H Estimated GFR/1.73 m2 46.82 Glucose 107 H Calcium 8.3 L Magnesium Total Bilirubin 0.9 AST 30 ALT 27 Alkaline Phosphatase 61 C-Reactive Protein Total Protein 7.0 Albumin 3.0 L TSH 1.31 Urine Color Urine Clarity Urine pH Ur Specific [place] Urine Protein Urine Ketones Urine Blood Urine Nitrite Urine Bilirubin Urine Urobilinogen Ur Leukocyte Esterase Urine RBC Urine WBC Ur Epithelial Cells Urine Crystals Urine Bacteria Urine Casts Urine Mucus Urine Other Ur Culture Indicated? Urine Glucose COVID-19 PCR Pending Nasopharyn COVID-19 PCR Pending Ref Test Perform Site Pending 08/14/19 08/14/19 08/13/19 00:00 00:00 23:51 WBC RBC Hgb Hct MCV MCH MCHC RDW Plt Count MPV Immature Gran % Neutrophils % Lymphocytes % Monocytes % Eosinophils % Basophils % Absolute Neutrophils Absolute Lymphocytes Absolute Monocytes Absolute Eosinophils Absolute Basophils Differential Comment RBC Morphology ESR 101 H Sodium Potassium Chloride Carbon Dioxide Anion Gap BUN Creatinine Estimated GFR/1.73 m2 Glucose Calcium Magnesium Total Bilirubin AST ALT Alkaline Phosphatase C-Reactive Protein 17.36 H Total Protein Albumin TSH Urine Color Yellow Urine Clarity Clear Urine pH 6.0 Ur Specific [place] 1.020 Urine Protein Trace H Urine Ketones 15 H Urine Blood Trace-intact H Urine Nitrite Negative Urine Bilirubin Negative Urine Urobilinogen 0.2 Ur Leukocyte Esterase Negative Urine RBC 0-2 Urine WBC 3-5 Ur Epithelial Cells Negative Urine Crystals Negative Urine Bacteria Negative Urine Casts 3-5 hyaline Urine Mucus Negative Urine Other Negative Ur Culture Indicated? No Urine Glucose Negative COVID-19 PCR Nasopharyn COVID-19 PCR Ref Test Perform Site 08/13/19 08/13/19 23:33 23:33 WBC 16.44 H RBC 3.63 L Hgb 11.4 L Hct 34.6 L MCV 95.3 H MCH 31.4 MCHC 32.9 RDW 12.0 Plt Count 271 MPV 9.4 Immature Gran % 0.2 Neutrophils % 71.6 Lymphocytes % 14.1 Monocytes % 13.9 Eosinophils % 0.1 Basophils % 0.1 Absolute Neutrophils 11.77 H Absolute Lymphocytes 2.32 Absolute Monocytes 2.29 H Absolute Eosinophils 0.02 Absolute Basophils 0.02 Differential Comment Agrees w/ instrument RBC Morphology Normal ESR Sodium 135 L Potassium 3.2 L Chloride 97 L Carbon Dioxide 28.1 Anion Gap 9.9 BUN 14 Creatinine 1.42 H Estimated GFR/1.73 m2 35.97 Glucose 134 H Calcium 8.8 Magnesium 2.1 Total Bilirubin 1.0 AST 35 ALT 33 Alkaline Phosphatase 71 C-Reactive Protein Total Protein 7.7 Albumin 3.4 TSH Urine Color Urine Clarity Urine pH Ur Specific [place] Urine Protein Urine Ketones Urine Blood Urine Nitrite Urine Bilirubin Urine Urobilinogen Ur Leukocyte Esterase Urine RBC Urine WBC Ur Epithelial Cells Urine Crystals Urine Bacteria Urine Casts Urine Mucus Urine Other Ur Culture Indicated? Urine Glucose COVID-19 PCR Nasopharyn COVID-19 PCR Ref Test Perform Site 08/14/19 02:49 Blood Blood Culture - Pending 08/14/19 02:42 Blood Blood Culture - Pending 08/14/19 00:00 Urine - Clean Catch Urine Culture - Pending Preliminary micro results at discharge 08/14/19 02:49 Blood Culture - Pending Blood 08/14/19 02:42 Blood Culture - Pending Blood 08/14/19 00:00 Urine Culture - Pending Urine - Clean Catch [facility] Medical History Back pain of lumbar region with sciatica (Chronic 01/16/16) incr Nov 2015; [place] [facility] [place]; + MRI 02/201603/20/[address] Moyer excellent result Essential hypertension (Acute) Foot drop, left (Chronic 09/27/16) mild left, following back surgery 05/2016 Hyperlipidemia (Chronic 03/17/03) RISK 14% in 06/2010; recalculated 05/2015: 13.8% Meniere's disease (Chronic 07/10/11) hydrochlorothiazide therapy Obesity (Chronic 01/12/13) GOAL 200 Primary osteoarthritis of right knee (Chronic 08/08/16) Spinal stenosis of lumbar region with neurogenic claudication (Resolved) Vitamin D deficiency (Chronic 11/08/16) Surgical History Biopsy of breast (03/17/89) laminectomy L4 (06/04/16) Bilateral laminectomy L4-5 with medial facetectomy; [facility] [place] [place] Ligation of fallopian tube Status post lumbar spine surgery for decompression of spinal cord (Acute 08/10/19) L3-S1 Family History Mother , breast ca at age 83. Breast cancer Father , cerebral hemor at age 63. No problems noted. Social History Smoking/Tobacco Use Status: Never Alcohol Intake: never Drug use: Never Household members: spouse Housing: house Number of Children: 2 Communication Needs: None current occupation: previously worked in [employer] Pets and animals: Yes Pets and animals: dog(s) Current gender identity: female What is your relationship status?: How often do you talk on the phone with friends or family?: three or more times per week Panel score (0-1 are the most socially isolated patients): 2 What type of physical activity do you participate in: none Seatbelt use: always Drive intox or ride w/intox warehouse delivery driver: No Water heater temp set <120 deg: Yes Working smoke detector in home: Yes Fire extinguisher in home: Yes Carbon monox detector in home: Yes Do you feel safe at home: Yes Do you feel safe in your relationship?: Yes
[2019-08-14] MEDS: Potassium Chloride 20 MEQ TABCR PO (10:13)
[2019-08-14 14:53] LABS: COVID-19 RT-PCR UVMMC Result Negative (Negative)
[2019-08-14] MEDS: Polyethylene Glycol 3350 17 GM PACKET PO (16:18)
[2019-08-14] MEDS: Docusate Sodium 100 MG CAP PO (16:18)
--- NOTE | 2019-08-14 17:40 | PDOC.CMPRO ---
Care Management Progress Note Nini resides in [place] with her , Zurdo. She reports things have been tense at home since her surgery, stating I didn't bounce back like last time. She shares that Zurdo does not appear to have much patience, and was not prepared for her to not be meeting her prior duties due to weakness during recovery. She reports she is hopeful for a timely transfer back [place] [facility] and her prior surgical team. She is started on IV ABX; per MD consult with [facility], anticipate she will transfer when a bed becomes available. CM reviewed contact information for further needs, and reviewed SWB option per RN request for when Nini is ready to discharge from [facility].
== END 2019-08-14 17:58 | disposition short-term general hospital (02) ==
LOC: ER 08-14 01:43 → MS 08-14 03:11
PROVIDERS: Admitting Provider Family Medicine; Emergency Provider Emergency Medicine; PCP Family Medicine; Visit Provider Internal Medicine
DX: R26.2 Difficulty in walking, not elsewhere classified (principal); R29.6 Repeated falls; R53.1 Weakness; Z98.890 Other specified postprocedural states; G89.18 Other acute postprocedural pain; E86.0 Dehydration; E87.6 Hypokalemia; M48.062 Spinal stenosis, lumbar region with neurogenic claudication; M21.372 Foot drop, left foot; N18.3 Chronic kidney disease, stage 3 (moderate); I12.9 Hypertensive chronic kidney disease with stage 1 through stage 4 chronic kidney disease, or unspecified chronic kidney disease
CPT/HCPCS: 36415; 80053; 85027; 85652; 87040; 96360; 96361; 99220; 99239; 99285; U0003; 71045; 72110; 81003; 81015; 83735; 84443; 85025; 86140; 87086; 99236; G0378; J3370

== ENCOUNTER → 2019-11-12 10:05 | Outpatient (BNVA) | payer MEDICARE, OTHER, SELFPAY | PROVIDERS: PCP Family Medicine; Referring Provider Family Medicine; Visit Provider Student in an Organized Health Care Education/Training Program | DX: M17.11 Unilateral primary osteoarthritis, right knee (principal); I10 Essential (primary) hypertension | CPT/HCPCS: 20610; 99203; 99214; J1040 ==

== ENCOUNTER 2019-11-19 04:32 | Outpatient (CLI) | payer MEDICARE, OTHER, SELFPAY ==
--- NOTE | 2019-11-19 07:45 | DI.US_ITS ---
EXAM: US LOWER EXTREMITY VENOUS LT CLINICAL HISTORY: Prior DVT, needs three month check, I82.409. I82.812 TECHNIQUE: Left lower extremity venous ultrasound performed using grayscale, color-flow, and spectra l Doppler analysis. COMPARISON: No exams were available for comparison FINDINGS: The left common femoral, femoral and popliteal veins demonstrate normal compressibility, augmentation , and color Doppler. The posterior tibial veins are patent. The contralateral common femoral vein is patent. IMPRESSION: No DVT. DATA REPOSITORY:
== END 2019-11-19 04:52 ==
PROVIDERS: PCP Family Medicine; Visit Provider Family Medicine
DX: Z86.718 Personal history of other venous thrombosis and embolism (principal)
CPT/HCPCS: 93971

== ENCOUNTER 2020-01-10 10:43 | Outpatient (CLI) | payer MEDICARE, OTHER, SELFPAY ==
--- NOTE | 2020-01-10 10:30 | DI.RAD_ITS ---
EXAM: XR KNEE RT 3V AP,LAT,DAYRON CLINICAL HISTORY: right knee pain TECHNIQUE: COMPARISON: CR RIGHT KNEE LIMITED 1 OR 2 VIEW from 04/10/2016 FINDINGS: Three views were obtained. There is narrowing of the cartilaginous joint spaces of the medial and la teral tibiofemoral joints and probably of the patellofemoral joint as well. There is moderate margin al osteophyte formation involving all 3 joints of the knee. There is a prominent superior patellar e nthesophyte. Poorly defined calcific or ossific densities projected posteriorly on the lateral view could represen t intra articular loose bodies. IMPRESSION: Degenerative changes as described above. RADIATION DOSE DELIVERED: Total DLP
== END 2020-01-10 11:03 ==
PROVIDERS: PCP Family Medicine; Referring Provider Family Medicine; Visit Provider Student in an Organized Health Care Education/Training Program
DX: M17.11 Unilateral primary osteoarthritis, right knee (principal); Z98.890 Other specified postprocedural states
CPT/HCPCS: 73562; 99214

== ENCOUNTER → 2020-02-07 08:40 | Outpatient (BNVA) | payer MEDICARE, OTHER, SELFPAY | PROVIDERS: PCP Family Medicine; Referring Provider Family Medicine; Visit Provider Student in an Organized Health Care Education/Training Program | DX: M17.11 Unilateral primary osteoarthritis, right knee (principal) ==

== ENCOUNTER 2020-03-24 04:32 | Outpatient (CLI) | payer MEDICARE, OTHER, SELFPAY ==
--- NOTE | 2020-03-24 07:30 | DI.MAMMO_ITS ---
EXAM: MG MAMMO SCREENING CLINICAL HISTORY: screening,Z12.39 TECHNIQUE: Bilateral full field digital CC and MLO mammographic images were obtained with 3D tomosyn thesis and utilizing computer aided detection (CAD). COMPARISON: Available for comparison. FINDINGS: Masses/Architectural Distortion: Stable nodular densities are seen in the breasts. No suspicious mas ses or areas of architectural distortion are seen. Microcalcifications: No suspicious pleomorphic-type are seen. Skin Thickening/Nipple Retraction: None. IMPRESSION: 1. No significant interval change with no specific features of malignancy noted. 2. Unless there is more urgent need, screening mammography is recommended, as per [employer] guidelines. BI-RADS Category 1 - Negative Breast Density - Category B - Scattered areas of fibroglandular density Breast density category C or D implies that the patient has dense breast tissue. Dense breast tissue is very common and is not abnormal but dense breast tissue can make it harder to find cancer on a ma mmogram. Also, dense breast tissue may increase their breast cancer risk. This information about the result of the mammogram report was provided to the patient to raise their awareness. Use this report when you speak with the patient about their risks for breast cancer, which includes their family hist ory. At that time, you may recommend for more screening tests (Ultrasound or MRI) as they might be us eful based on their risk. A negative radiographic report should not delay biopsy if a dominant or clinically suspicious mass is present. Up to ten percent of cancers are not identified on mammography. A negative report may reinforce clinical impression. Adenosis and dense breasts may obscure an underlying neoplasm. False positive reports average 6 to 10%. Patient will receive a letter notifying them of these results.
== END 2020-03-24 04:52 ==
PROVIDERS: PCP Family Medicine; Visit Provider Family Medicine
DX: Z12.31 Encounter for screening mammogram for malignant neoplasm of breast (principal)
CPT/HCPCS: 77063; 77067

== ENCOUNTER → 2020-09-11 10:46 | Outpatient (BNVA) | payer MEDICARE, OTHER, SELFPAY | PROVIDERS: PCP Family Medicine; Referring Provider Family Medicine; Visit Provider Student in an Organized Health Care Education/Training Program | DX: M17.11 Unilateral primary osteoarthritis, right knee (principal) | CPT/HCPCS: 20610; J7325 ==

== ENCOUNTER 2021-02-19 00:28 | Outpatient (CLI) | payer MEDICARE, OTHER, SELFPAY ==
--- NOTE | 2021-02-19 06:45 | DI.US_ITS ---
Exam(s) US CAROTID EXAM: US CAROTID CLINICAL HISTORY: Episodic loss of vision in R eye,amaurosis fugax,g45.3. TECHNIQUE: Ultrasound carotids performed using grayscale, color-flow, and spectral Doppler imaging. COMPARISON: US US LOWER EXTREMITY VENOUS LT from 11/19/2019 FINDINGS: Mild carotid findings as described below. However, there is incidental note of significant findings in both thyroid lobes, detailed below. RIGHT CAROTID ARTERY: There is mild plaque at the carotid bulb and proximal internal carotid artery, not associated with el evated velocities. LEFT CAROTID ARTERY: There is mild plaque at the carotid bulb and proximal internal carotid artery, not associated with el evated velocities. VERTEBRAL ARTERIES: Antegrade flow demonstrated in both vertebral arteries. Measurements: R Bulb: 53.3cm/s PS / 15.4cm/s ED R CCA: 51.4cm/s PS / 16.7cm/s ED R ECA: 73.9cm/s PS / 16.7cm/s ED R ICA Prox: 52.1cm/s PS /18cm/s ED R ICA Mid: 55.3cm/s PS / 21.2cm/s ED R ICA Distal: 71.7cm/s PS /31.45cm/s ED R Vert: 37.3cm/s PS / 19.3cm/s ED R SVR: 1.35 R DVR: 1.77 L Bulb: 45.6cm/s PS /17.4cm/s ED L CCA: 62.3cm/s PS / 20.6cm/s ED L ECA: 69.4cm/s PS /16.7cm/s ED L ICA Prox:52.7cm/s PS / 21.9cm/s ED L ICA Mid: 57.8cm/sPS / 27.6cm/s ED L ICA Distal: 55.9cm/s PS / 26.4cm/s ED L Vert: 45cm/s PS / 18.6cm/s ED L SVR: 0.93 L DVR: 1.34 THYROID GLAND: Pathology in both thyroid lobes was incidentally noted on this carotid artery study. There are 4 findings in the right lobe and 3 findings in the left lobe. RIGHT THYROID LOBE: In the superior aspect there is a 9 x 5 x 7 millimeter benign cyst. Below this level there is a nodule measuring 1.0 x 0.9 x 0.8 cm. This nodule is solid (2 points). I t is relatively hypoechoic compared to the remainder of the gland (2 points). In the transverse plan e it appears taller than wider (3 points). Margins are lobulated and there is slight elevation of th yroid border at this level (3 points). Contains both macro calcification and as well as punctate ech ogenic foci (3 points). Total points for this nodule =13 therefore TR 5= suspicious and requires biopsy. Below this nodule in the inferomedial aspect of the right lobe there is another nodule measuring 0.9 x 0.8 x 0.8 cm. This nodule appears mixed solid-cystic (1 point). Solid components are hypoechoic c ompared to surrounding parenchyma (2 points). Not taller than wider in the transverse plane (0 point s). Margins are lobulated (2 points). This nodule contains punctate echogenic foci (3 points) Total points for this nodule =8 therefore TR5= suspicious but can be followed given that it measur es less than 1 cm. Final nodule in the right lobe is more peripherally located and the smaller and more benign-appearing and can be followed. There is no abnormal adenopathy in the right-side of the neck. LEFT THYROID LOBE: The dominant nodule in the left lobe measures 1.2 x 1.1 x 1.1 cm. This nodule is solid (2 points). It is hypoechoic compared to the thyroid parenchyma (2 points). It exhibits extrathyroidal extension (3 points). It contains both macro and microcalcifications (3 points). It is not taller than wider in the transverse plane (0 points). Total points for this nodule =10 therefore TR5 and requires biopsy Above this nodule is another nodule in the left lobe 7 x 6 x 8 millimeters; this can be followed. More medially in the upper aspect of the left lobe is a small but somewhat concerning nodule measurin g 0.5 x 0.5 x 0.4 millimeters. This nodule is solid (2 points). It is hypoechoic compared to surrou nding parenchyma (2 points). It appears slightly taller than wider in the transverse plane (3 points ). It does not exhibit internal echogenic foci (0 points). However, its margin is somewhat concerni ng as it exhibits extrathyroidal extension (3 points). Total points for this nodule = 10 therefore TR 5 suspicious and should be biopsied but given the extr athyroidal extension component. There is no significant ipsilateral adenopathy evident in the left side of the neck. IMPRESSION: 1. No evidence for hemodynamically significant carotid stenosis in the neck. Mild plaque at the car otid bulbs and proximal ICAs, estimated approximately 20 percent bilaterally. 2. Incidentally noted are significant nodules in both thyroid lobes as detailed individually above. Ultrasound-guided FNA is recommended for 2 nodules in the left lobe and 1 nodule in the right lobe. Criteria for Carotid Stenosis: Normal: ICA PSV <125 cm/s no plaque or intimal thickening is visible. <50% stenosis: ICA PSV <125 cm/s and plaque or intimal thickening is visible. 50-69% stenosis: ICA PSV is 125-250 cm/s and plaque is visible. >70% stenosis to near occlusion: ICA PSV >250 cm/s with visible plaque and luminal narrowing. DATA REPOSITORY:
== END 2021-02-19 00:48 ==
PROVIDERS: PCP Family Medicine; Visit Provider Family Medicine
DX: G45.3 Amaurosis fugax (principal); R93.89 Abnormal findings on diagnostic imaging of other specified body structures; E04.1 Nontoxic single thyroid nodule
CPT/HCPCS: 93880

== ENCOUNTER 2021-02-27 02:56 | Outpatient (CLI) | payer MEDICARE, OTHER, SELFPAY ==
[2021-02-27 11:23] LABS: BUN 24 mg/dL (7-18); CREATININE 1.2 mg/dL (0.55-1.02); Calcium 9.3 mg/dL (8.5-10.1); Chloride 102 mmol/L (98-107); Estimated GFR 43.45 (mL/min/1.73m2); Glucose 153 mg/dL (74-106); Potassium 3.7 mmol/L (3.5-5.1); Sodium 141 mmol/L (136-145)
== END 2021-02-27 02:57 | disposition home or self-care (01) ==
LOC: LBO 02:57
PROVIDERS: PCP Family Medicine; Visit Provider Family Medicine
DX: N18.30 Chronic kidney disease, stage 3 unspecified (principal)
CPT/HCPCS: 36415; 80048

== ENCOUNTER 2021-03-29 02:42 | Outpatient (CLI) | payer MEDICARE, OTHER, SELFPAY ==
--- NOTE | 2021-03-29 06:30 | DI.US_ITS ---
APPROVED REPORT EXAM: Comprehensive 2D, Doppler, and color-flow Echocardiogram Patient Location: Out-Patient Teacher Tutor: Kirstin Russell RDCS (AE) Indications: Episodes of amaurosis fugax, DVT Other Information Study Quality: Adequate Conclusion Left Ventricle : The left ventricle is normal size. The left ventricular systolic function is normal. The left ventricular ejection fraction is within the normal range. There is normal left ventricular wall thickness. There is normal LV segmental wall motion. The left ventricular diastolic function is normal. LVEF is 58%. Right Ventricle : The right ventricle is normal size. The right ventricular systolic function is norm al. The RVSP is 21.1 mmHg. Atria : The left atrium size is normal. The right atrium size is normal. Mitral Valve : The mitral valve is normal in structure. Trace mitral regurgitation. No evidence of mi tral valve stenosis. Great Vessels : The aortic root is normal in size. The ascending aorta is normal in size. IVC is norm al in size and collapses >50% with inspiration. Wall motion Left Ventricle The left ventricle is normal size. The left ventricular systolic function is normal. The left ventric ular ejection fraction is within the normal range. There is normal left ventricular wall thickness. T here is normal LV segmental wall motion. The left ventricular diastolic function is normal. There is no ventricular septal defect visualized. LVEF is 58%. Right Ventricle The right ventricle is normal size. The right ventricular systolic function is normal. The RVSP is 21 .1 mmHg. Atria The left atrium size is normal. The right atrium size is normal. The interatrial septum is intact wit h no evidence for an atrial septal defect. Aortic Valve The aortic valve is normal in structure. Aortic valve is trileaflet. There is no aortic valvular sten osis. No aortic regurgitation is present. Mitral Valve The mitral valve is normal in structure. No evidence of mitral valve stenosis. Trace mitral regurgita tion. Tricuspid Valve The tricuspid valve is normal in structure. There is no tricuspid valve stenosis. Trace tricuspid reg urgitation. Pulmonic Valve The pulmonary valve is normal in structure. There is no pulmonic valvular stenosis. There is no pulmo olivier valvular regurgitation. Great Vessels The aortic root is normal in size. The ascending aorta is normal in size. IVC is normal in size and c ollapses >50% with inspiration. Pericardium There is no pericardial effusion. 2D Dimensions IVSD d PLAX 0.97 cm F: 0.6-1.0 LV Vol A2C d MOD 82.8 mL LVPW d PLAX 0.97 cm F: 0.6 - 1.0 LV Vol A4C d MOD 110.6 mL LVID d PLAX 4.62 cm F: 3.8 - 5.2 LA vol/ BSA A2C s A-L 26.1 mL/m2 LVDs 3.10 cm F: 2.2 - 3.5 LA vol/ BSA A4C s A-L 21.1 mL/m2 Ao Root d 2.86 cm F: 2.7 - 3.3 LA Vol/ BSA Biplane s A-L 24.1 mL/m2 RA Area A4C 15.27 cm2 LA Area A4C s MOD 15.94 cm2 RA Vol/ BSA A4C s A-L 18.5 mL/m2 LA Area A2C s MOD 17.25 cm2 Ao Asc Diam d 3.25 cm F: 2.3 - 3.1 LV EF A4C MOD 58.3 % LV EF Teichholz 60.9 % LV EF A2C MOD 57.6 % LVEF (Durant's) 57.70 % F: 54 - 74 LV EF Biplane MOD 57.7 % LV Volume 74.16 mL F: 46 - 106 SV 57.58 mL LV Volume Index 36.17 mL/m2 F: 29 - 61 SV Index 28.00 mL/m2 LV Vol Biplane MOD 99.8 mL FS 32.45 % M-Mode TAPSE 2.66 cm (M/F) >1.7 LV Diastology MV E' medial 0.106 (>0.07 m/s) E/A Ratio 0.6 LV E/e MED 4.65 (<14) MV E Vmax 0.50 (0.4-1.3 m/s) MV E' lateral 0.050 (>0.1 m/s) MV A Vmax 0.80 (0.4-1.3 m/s) LV E/e LAT 9.85 (<14) MV E/A Ratio 0.62 MV E/E' medial 4.66 MV E/E' lateral 9.90 Aortic Valve LVOT Area 3.11 cm2 AoV Area Vmax 2.40 cm2 LVOT Vmax 0.91 m/s AoV Area/ BSA (Vmax) 1.17 cm2/m2 LVOT Mean Sunny. 0.52 m/s JANINA Mean Sunny. 1.93 cm2 LVOT Peak Grad 3.3 mmHg JANINA Mean Sunny. Index 0.94 cm2/m2 LVOT Mean Grad 1.4 mmHg LVOT VTI 0.197 m LVOT Diam s 1.95 cm AoV Vmax 1.18 m/s Velocity Ratio 0.77 AoV Mean Sunny. 0.84 m/s AoV Peak Grad 5.6 mmHg LVOT SV 61.40 mL AoV Mean Grad 3.1 mmHg AoV VTI 0.250 m AoV Area VTI 2.45 cm2 AoV Area/ BSA (VTI) 1.19 cm/m2 Mitral Valve MV DT 298 (160-240 msec) MV PHT 87 msec MV Area PHT 2.54 cm2 MV VTI 0.187 m MV Area VTI 3.29 (4.0-6.0 cm2) Pulmonary Valve PV Vmax 0.87 (0.5-1.5 m/s) RVOT Peak Gr. 1.74 mmHg PV Peak Grad 3.0 mmHg RVOT Mean Gr. 0.75 mmHg PV Mean Grad 1.5 mmHg RVOT VTI 0.127 m PV VTI 0.154 m RVOT Vmax 0.66 m/s Tricuspid Valve TR Peak Grad 18.0 mmHg TR Vmax 2.12 m/s RA Pressure 3.00 mmHg RVSP (TR) 21.1 mmHg
== END 2021-03-29 03:02 ==
PROVIDERS: PCP Family Medicine; Visit Provider Family Medicine
DX: G45.3 Amaurosis fugax (principal); Z86.718 Personal history of other venous thrombosis and embolism
CPT/HCPCS: 36415; 80048; 93306; 84443

== ENCOUNTER 2021-03-29 04:24 | Outpatient (CLI) | payer MEDICARE, OTHER, SELFPAY ==
[2021-03-29 10:34] LABS: Anion Gap 8.3 mmol/L (3-11); BUN 26 mg/dL (7-18); CO2 29.7 mmol/L (21.0-32.0); CREATININE 1.2 mg/dL (0.55-1.02); Calcium 9.3 mg/dL (8.5-10.1); Chloride 103 mmol/L (98-107); Estimated GFR 43.45 (mL/min/1.73m2); Glucose 102 mg/dL (74-106); Potassium 3.7 mmol/L (3.5-5.1); Sodium 141 mmol/L (136-145); TSH (W/Ref FT4) 2.48 uIU/mL (0.36-3.74)
== END 2021-03-29 04:25 | disposition home or self-care (01) ==
LOC: LBO 04:24
PROVIDERS: PCP Family Medicine; Visit Provider Family Medicine
DX: E04.1 Nontoxic single thyroid nodule (principal)
CPT/HCPCS: 36415; 80048; 84443

== ENCOUNTER 2022-02-26 02:30 | Outpatient (CLI) | payer MEDICARE, OTHER, SELFPAY ==
[2022-02-26 10:20] LABS: Anion Gap 7.1 mmol/L (3-11); BUN 30 mg/dL (7-18); CO2 30.9 mmol/L (21.0-32.0); CREATININE 1.4 mg/dL (0.55-1.02); Calcium 9.4 mg/dL (8.5-10.1); Chloride 101 mmol/L (98-107); Estimated GFR 38.27 (mL/min/1.73m2); Glucose 116 mg/dL (74-106); Potassium 3.6 mmol/L (3.5-5.1); Sodium 139 mmol/L (136-145)
== END 2022-02-26 02:31 | disposition home or self-care (01) ==
PROVIDERS: PCP Family Medicine; Visit Provider Family Medicine
DX: I10 Essential (primary) hypertension (principal)
CPT/HCPCS: 36415; 80048

== ENCOUNTER 2022-11-01 11:13 | Outpatient (CLI) | payer MEDICARE, OTHER, SELFPAY ==
--- NOTE | 2022-11-01 11:00 | RT.EKG_ITS ---
APPROVED REPORT Exam: Resting ECG Reason for Exam: Tachycardia Patient Location: O HR:99 bpm ECG Measurements Heart Rate 99 AXIS MS 161 P 28 QRSd 112 QRS 36 QT 365 T -90 QTc 469 Conclusion Sinus rhythm...normal P axis, V-rate 50- 99 Borderline intraventricular conduction delay...QRSd >112mS Abnrm T, consider ischemia, anterolateral lds...T <-0.20mV, I aVL V2-V6
== END 2022-11-01 11:14 | disposition home or self-care (01) ==
LOC: DI.KIM 11:15
PROVIDERS: PCP Family Medicine; Visit Provider Family Medicine
DX: R00.0 Tachycardia, unspecified (principal); R06.02 Shortness of breath
CPT/HCPCS: 93010

== ENCOUNTER 2022-11-01 11:59 | Inpatient (IN) | payer MEDICARE, OTHER, SELFPAY ==
[2022-11-01] VITALS (20 sets, daily range): BP systolic 121–148; BP diastolic 66–100; PULSE 95–104; RESP 16–20; TEMP 36.8–37.5; O2SAT 87–98
--- NOTE | 2022-11-01 12:00 | RT.EKG_ITS ---
APPROVED REPORT Exam: Resting ECG Reason for Exam: Chest pain Patient Location: E HR:98 bpm ECG Measurements Heart Rate 98 AXIS RI 168 P 13 QRSd 98 QRS 41 QT 375 T 181 QTc 478 Conclusion Sinus rhythm...normal P axis, V-rate 60- 99 Ventricular premature complex...V complex w/ short R-R interval Abnrm T, consider ischemia, anterolateral lds...T <-0.20mV, I aVL V2-V6 sinus rhythm, normal axis, normal intervals, t wave inversions anterior lateral leads
--- NOTE | 2022-11-01 12:38 | NUR.NOTE ---
Nursing Note:First IV attempt pt was talking to the provider and RN initatied the stick. Pt screamed and flailed arm and the attempt was not succesful.
[2022-11-01 12:41] LABS: Abs Immature Grans 0.06 10^3/uL (0.0-0.06); Absolute Basophil Count 0.04 10^3/uL (0.0-0.2); Absolute Eosinophil Count 0.04 10^3/uL (0.0-0.7); Absolute Lymphocyte Count 2.09 10^3/uL (1.2-3.4); Absolute Monocyte Count 1.42 10^3/uL (0.1-0.8); Absolute Neutrophil Count 9.34 10^3/uL (1.2-6.7); Basophils % 0.3; Eosinophils % 0.3; HCT 36.1 % (36.0-46.0); Immature Grans % 0.5; Lymphocytes % 16.1; MCH 30.8 pg (27.0-33.0); MCHC 33.2 % (32.0-36.0); MCV 93 fL (80-95); Monocytes % 10.9; Neutrophils % 71.9; Platelet Count 221 10^3/uL (130-400); RDW 11.4 % (11.7-14.6); RDW-SD 38.5 fL; WBC 12.99 10^3/uL (4.4-10.8)
--- NOTE | 2022-11-01 13:00 | DI.CT_ITS ---
Exam(s) CT CHEST PE CTA EXAM: CT CHEST PE CTA CLINICAL HISTORY: sob. TECHNIQUE: Imaging Protocol: CT angiography of the chest was performed using pulmonary embolus javier col. Multi planar reconstructions were performed. CONTRAST MATERIAL: Intravenous: Omnipaque 350 Contrast volume: 100 cc COMPARISON: No exams were available for comparison FINDINGS: CHEST: PULMONARY ARTERIES: There are extensive bilateral pulmonary emboli filling defects evident in the dis bobbi aspects of both right and left main pulmonary arteries and extending into the more peripheral bra nches of all lobes of both lungs. LUNGS: No evidence of infiltrates nor pulmonary infarction at this time. No pleural effusions. No o minous pulmonary nodules. There are no significant focal findings in the trachea and mainstem bronch i.. MEDIASTINUM: There is no hilar nor mediastinal adenopathy. Visualized thyroid unremarkable. CARDIAC: Heart size is upper normal. There is no pericardial effusion.Caliber of the thoracic aorta is within normal limits. No dissection. Ventricular ratio is approximately 1: 1. There is no reflux of contrast into the intrahepatic IVC. PARTIALLY VISUALIZED UPPERMOST ABDOMEN: No adrenal masses. No splenomegaly. OSSEOUS: No significant osseous lesions.. IMPRESSION: 1. Extensive bilateral pulmonary emboli. High clot load throughout both lung gr..Ventricular rat io is 1/1. 2. No evidence of pulmonary infarction at this time. No infiltrates nor pleural effusions. 3. No evidence of aortic dissection nor pericardial effusion. Discussed by phone with ER physician. RADIATION DOSE DELIVERED: 402.64mGy.cm Total DLP DATA REPOSITORY: All CT scans at this facility are submitted to the National Radiology Data Registry (NRDR) Dose Index Registry (DIR) with the [employer] (ACR). RADIATION OPTIMIZATION: All CT scans at this facility use at least one of these dose optimization te chniques: automated exposure control; mA and/or kV adjustment per patient size (includes targeted exa ms where dose is matched to clinical indication); or iterative reconstruction.
[2022-11-01 13:07] LABS: ALT 77 U/L (14-59); AST 58 U/L (15-37); Albumin 3.4 g/dL (3.4-5.0); Alkaline Phosphatase 83 U/L (46-116); Anion Gap 12.1 mmol/L (3-11); BUN 18 mg/dL (7-18); Bilirubin, Total 1.1 mg/dL (0.2-1.0); CO2 23.9 mmol/L (21.0-32.0); CREATININE 1.4 mg/dL (0.55-1.02); Chloride 104 mmol/L (98-107); Estimated GFR 38.27 (mL/min/1.73m2); Glucose 138 mg/dL (74-106); NT-proBNP 3679 pg/mL (<300); Potassium 4.1 mmol/L (3.5-5.1); Sodium 140 mmol/L (136-145); Troponin I < 50 ng/L (<or=60)
[2022-11-01 13:11] LABS: D-Dimer > 7500 ng/mlFEU (<500)
[2022-11-01 13:16] LABS: COVID-19 PCR Negative (Negative); Influenza A PCR Negative (Negative); Influenza B PCR Negative (Negative); RSV PCR Negative (Negative)
[2022-11-01 13:17] LABS: Source Nasopharynx
--- NOTE | 2022-11-01 14:02 | ED.GENADUL_ITS ---
Discharge Plan Disposition Patient Disposition: Admit to [facility] Discharge Details Chief Complaint: SOB Clinical Impression: Bilateral pulmonary embolism, Chronic kidney disease Admit Date/Time: 11/01/22 15:53 Admit Provider: Macrina Garcia Attending Provider: Macrina Garcia Primary Care Provider: Matt Doss ED Provider: Hasmukh Haas Discharge Data Discharge Date/Time-TO BE ENTERED AT DEPARTURE: 11/01/22 17:07 Medical Decision Making Patient presenting to the emergency department for chief complaint of shortness of breath with nonproductive cough since Friday. She does state that with activity she has become short of breath and had some episodes of lightheadedness but denies any syncope. She also over the last couple days has started with some chest tightness that is intermittent. Patient states history of chronic kidney disease, hypertension, DVT/thrombophlebitis after surgery 2 years ago and spinal stenosis which is what she had surgery for. Physical exam shows tachycardia, very slight hypoxia with O2 sat of 93, normotensive afebrile nontachypneic at rest, clear lung sounds and otherwise normal cardiac exam. Given EKG changes noted at the office will repeat EKG here along with cardiac labs. We will add on D-dimer given patient's history of thrombosis. Please see physician interpretation for full interpretation of EKG but patient does have some inverted T waves and ST depressions noted. EKG is otherwise nondiagnostic. Does not meet acute criteria for STEMI. Reviewed labs and patient has a slight leukocytosis with white count of 12.99 and elevated neutrophils and monocytes, D-dimer is greater than 7500, slightly increased anion gap at 12.1, creatinine 1.4 with a GFR of 38. Patient does have some elevated bilirubin AST and ALT but nothing severe. Initial troponin is negative nondetected but BNP is 3679. Patient is negative for COVID flu and RSV. I am concerned for possible pulmonary embolism given slightly abnormal vital signs and severely elevated D-dimer. Given this I did do feel risk outweighs benefit of CT imaging given decreased renal function. Discussed this with patient and significant other and they were also in agreement with plan. Will give just 500 mL fluid bolus after scan. Reviewed CT imaging and saw significant pulmonary embolism bilateral with some evidence of right-sided enlargement via CT. I do feel this correlates with elevated D-dimer, BNP being elevated and slight hypoxia and tachycardia along with shortness of breath and chest discomfort. PT PTT was ordered and patient started on heparin with bolus given per weight-based protocol. We will consult with [facility] [place] given size of PE and signs of heart strain. While patient does have a lower PESI score she is an intermediate to intermediate risk based on prognostication score. Spoke with [facility] cardiology who was covering for pulmonology and pulmonary embolism. They stated patient should stay on heparin and be converted to oral anticoagulant when safely possible. They stated that at this time they do not feel that patient needs or meets criteria for thrombectomy or any tertiary care intervention unless patient becomes unstable. Spoke with Dr. Garcia hospitalist who agreed to admit patient after second troponin which was negative and nondetected. Imaging Data Radiologic Study: Imaging: CT Scan Radiologist's impression: Exam(s) CT CHEST PE CTA EXAM: CT CHEST PE CTA CLINICAL HISTORY: sob. TECHNIQUE: Imaging Protocol: CT angiography of the chest was performed using pulmonary embolus protocol. Multi planar reconstructions were performed. CONTRAST MATERIAL: Intravenous: Omnipaque 350 Contrast volume: 100 cc COMPARISON: No exams were available for comparison FINDINGS: CHEST: PULMONARY ARTERIES: There are extensive bilateral pulmonary emboli filling defects evident in the distal aspects of both right and left main pulmonary arteries and extending into the more peripheral branches of all lobes of both lungs. LUNGS: No evidence of infiltrates nor pulmonary infarction at this time. No pleural effusions. No ominous pulmonary nodules. There are no significant focal findings in the trachea and mainstem bronchi.. MEDIASTINUM: There is no hilar nor mediastinal adenopathy. Visualized thyroid unremarkable. CARDIAC: Heart size is upper normal. There is no pericardial effusion.Caliber of the thoracic aorta is within normal limits. No dissection. Ventricular ratio is approximately 1: 1. There is no reflux of contrast into the intrahepatic IVC. PARTIALLY VISUALIZED UPPERMOST ABDOMEN: No adrenal masses. No splenomegaly. OSSEOUS: No significant osseous lesions.. IMPRESSION: 1. Extensive bilateral pulmonary emboli. High clot load throughout both lung gr..Ventricular ratio is 1/1. 2. No evidence of pulmonary infarction at this time. No infiltrates nor pleural effusions. 3. No evidence of aortic dissection nor pericardial effusion. Lab Data Lab results reviewed: Yes I reviewed the patient's lab results. HPI General Mode of arrival: ambulatory . Date/Time Provider Initiated Documentation: 11/01/22 12:00 . Limitations to Documentation: no limitations . Information obtained by: patient, family and RN notes reviewed . History of Present Illness 77 year old F presents to the emergency department with the chief complaint of Shortness of breath some chest tightness, Quality is described as aching, and is localized to the chest. Patient started experiencing this day(s) (5) and it has been constant. No relieving factors improve symptom(s), Patient did receive the following treatments prior to arrival, none Related Data Home Medications Medication Instructions Recorded Confirmed shziyictwxep-smsbaupt-yuryyp tablet 1 tab PO HS 12/31/18 11/01/22 cholecalciferol (vitamin D3) 125 125 mcg PO DAILY 08/31/20 11/01/22 mcg (5,000 unit) disintegrating tablet glucosamine-chondroitin 250 mg-200 2 tab PO QDAY 03/05/21 11/01/22 mg tablet (Osteo Bi-Flex) meclizine 25 mg tablet 25 mg PO DAILY PRN dizziness #90 09/03/21 11/01/22 tabs losartan 50 mg tablet 50 mg PO DAILY #90 tabs 05/02/22 11/01/22 pyridoxine (vitamin B6) 100 mg 100 mg PO DAILY 08/01/22 11/01/22 tablet Nervive Nerve Relief PO DAILY 11/01/22 losartan 50 mg tablet 50 mg PO DAILY 11/01/22 11/01/22 Previous Rx's Medication Instructions Recorded meclizine 25 mg tablet 25 mg PO DAILY PRN dizziness #90 09/03/21 tabs losartan 50 mg tablet 50 mg PO DAILY #90 tabs 05/02/22 Allergies Allergy/AdvReac Type Severity Reaction Status Date / Time atorvastatin AdvReac Intermediate cramps Verified 11/01/22 12:30 pravastatin AdvReac Intermediate stiffness Verified 11/01/22 12:30 General Stated Complaint: SOB ÓSCAR: 3 Review of Systems Constitutional Constitutional: Denies chills, Denies fever(s) and Denies malaise Cardiovascular Cardiovascular: Reports as per HPI, Reports chest pain, Denies chest pain with activity, Denies syncope, Denies irregular heart rhythm, Denies palpitations and Reports dyspnea Respiratory Respiratory: Reports as per HPI, Reports cough, Denies hemoptysis and Reports dyspnea Gastrointestinal Gastrointestinal: Denies abdominal pain, Denies nausea and Denies vomiting Neurologic Neurologic: Denies syncope Psychiatric Psychiatric: Denies anxiety Endocrine Endocrine: Denies cold intolerance, Denies heat intolerance and Denies palpitations PFSH All Active Problems (Updated 11/03/22 @ 15:51 by Hasmukh Haas NP) Deep vein thrombosis (DVT) of popliteal vein of left lower extremity (Acute) Discharge planning issues (Acute) Leucocytosis (Acute) Acute electrocardiogram changes (Acute) Bilateral pulmonary embolism (Acute) Syncope and collapse (Acute) Thyroid nodule (Acute) Amaurosis fugax of right eye (Acute) DVT (deep venous thrombosis) (Chronic) [facility] [place]13-08/16[place] - L peroneal vein. 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 Moyer excellent result Spinal stenosis of lumbar region with neurogenic claudication (Chronic) Surgical History Biopsy of breast (03/17/89) laminectomy L4 (06/04/16) Bilateral laminectomy L4-5 with medial facetectomy; [facility] [place] 07/2019 extension of decompressive laminectomy Ligation of fallopian tube Status post lumbar spine surgery for decompression of spinal cord (08/10/19) L3-S1 Family History (Updated 11/01/22 @ 18:21 by Macrina Garcia MD) Mother , breast ca at age 83. Breast cancer VTE (venous thromboembolism) phlebitis in setting of trauma Social History Smoking/Tobacco Use Status: Never Second Hand Exposure: No Smoking risk assessment performed?: Yes Alcohol Intake: never Drug use: Never Household members: spouse Housing: house Number of Children: 2 Communication Needs: None current occupation: previously worked in [employer] Pets and animals: Yes Pets and animals: dog(s) Current gender identity: female What is your relationship status?: How often do you talk on the phone with friends or family?: three or more times per week Panel score (0-1 are the most socially isolated patients): 2 What type of physical activity do you participate in: none and other Duration: 15-30 minutes/day Frequency: 1-2 times per week Seatbelt use: always Drive intox or ride w/intox non emergency services ambulance driver: No Water heater temp set <120 deg: Yes Working smoke detector in home: Yes Fire extinguisher in home: Yes Carbon monox detector in home: Yes Do you feel safe at home: Yes Do you feel safe in your relationship?: Yes Exam Const General: cooperative, healthy appearing, comfortable, no acute distress, not diaphoretic and not ill appearing Orientation: alert, awake and oriented x3 Limitations: mental status not altered Neck Neck: normal visual inspection, full ROM, trachea midline, supple and no anterior neck swelling Carotids: normal carotid upstroke and no bruits Chest Chest: normal inspection of the chest Resp Effort & Inspection: normal respiratory effort and able to speak in complete sentences Auscultation: clear to auscultation bilaterally Cardio Jugular venous pressure: no JVD Palpation: normal PMI Rate: tachycardic Rhythm: regular rhythm Heart Sounds: S1 normal, S2 normal, no click, no gallops, no murmurs and no rubs Bruits: no abdominal aortic bruits and no carotid bruits Pulses: radial pulses present bilaterally 2+ Skin General skin exam: no rashes or lesions noted Neuro General: patient alert, patient awake, patient oriented x3, tone normal and moves all extremities Course Vital Signs Vital signs: Vital Signs Temperature 36.8 C 11/01/22 12:05 Pulse 101 H 11/01/22 12:05 Respiratory Rate 20 11/01/22 12:05 Blood Pressure 134/66 11/01/22 12:05 Pulse Oximetry 94 11/01/22 12:05 Temperature 36.8 C 11/01/22 12:05 Temperature Source Skin 11/01/22 12:05 Pulse 101 H 11/01/22 12:05 Respiratory Rate 18 11/01/22 12:26 Respiratory Effort Short of Breath 11/01/22 12:26 Respiratory Depth Normal 11/01/22 12:26 Respiratory Pattern Normal 11/01/22 12:26 Blood Pressure 134/66 11/01/22 12:05 Blood Pressure Position Sitting 11/01/22 12:05 Pulse Oximetry 94 11/01/22 12:05 Oxygen Delivery Method Room Air 11/01/22 12:05 Oxygen Flow Rate 0 11/01/22 12:05 Pain Level 0 11/01/22 12:05 Lab/Test Results Lab/Test Results: Laboratory Tests Range/Units 11/01/22 11/01/22 11/01/22 12:30 12:34 12:34 WBC (4.4-10.8) 10^3/uL RBC (3.93-5.22) 10^6/uL Hgb (11.2-15.7) g/dL Hct (36.0-46.0) % MCV (80-95) fL MCH (27.0-33.0) pg MCHC (32.0-36.0) % RDW (11.7-14.6) % Plt Count (130-400) 10^3/uL MPV (8.0-11.0) fL Immature Gran % Neutrophils % Lymphocytes % Monocytes % Eosinophils % Basophils % Nucleated RBC % (0.0-0.3) % Absolute Neutrophils (1.2-6.7) 10^3/uL Absolute Lymphocytes (1.2-3.4) 10^3/uL Absolute Monocytes (0.1-0.8) 10^3/uL Absolute Eosinophils (0.0-0.7) 10^3/uL Absolute Basophils (0.0-0.2) 10^3/uL D-Dimer (<500) ng/mlFEU > 7500 H Sodium (136-145) mmol/L Potassium (3.5-5.1) mmol/L Chloride (98-107) mmol/L Carbon Dioxide (21.0-32.0) mmol/L Anion Gap (3-11) mmol/L BUN (7-18) mg/dL Creatinine (0.55-1.02) mg/dL Est GFR (CKD-EPI 2020) (mL/min/1.73m2) Glucose (74-106) mg/dL Calcium (8.5-10.1) mg/dL Magnesium (1.8-2.4) mg/dL Total Bilirubin (0.2-1.0) mg/dL AST (15-37) U/L ALT (14-59) U/L Alkaline Phosphatase (46-116) U/L Troponin I Cancelled NT-Pro-B Natriuret Pep Cancelled Total Protein (6.4-8.2) g/dL Albumin (3.4-5.0) g/dL COVID-19 Source Nasopharynx SARS-CoV-2 (PCR) (Negative) Negative Influenza Type A (PCR) (Negative) Negative Influenza Type B (PCR) (Negative) Negative RSV (PCR) (Negative) Negative Range/Units 11/01/22 11/01/22 12:34 12:34 WBC (4.4-10.8) 10^3/uL 12.99 H RBC (3.93-5.22) 10^6/uL 3.90 L Hgb (11.2-15.7) g/dL 12.0 Hct (36.0-46.0) % 36.1 MCV (80-95) fL 93 MCH (27.0-33.0) pg 30.8 MCHC (32.0-36.0) % 33.2 RDW (11.7-14.6) % 11.4 L Plt Count (130-400) 10^3/uL 221 MPV (8.0-11.0) fL 9.0 Immature Gran % 0.5 Neutrophils % 71.9 Lymphocytes % 16.1 Monocytes % 10.9 Eosinophils % 0.3 Basophils % 0.3 Nucleated RBC % (0.0-0.3) % 0.0 Absolute Neutrophils (1.2-6.7) 10^3/uL 9.34 H Absolute Lymphocytes (1.2-3.4) 10^3/uL 2.09 Absolute Monocytes (0.1-0.8) 10^3/uL 1.42 H Absolute Eosinophils (0.0-0.7) 10^3/uL 0.04 Absolute Basophils (0.0-0.2) 10^3/uL 0.04 D-Dimer (<500) ng/mlFEU Sodium (136-145) mmol/L 140 Potassium (3.5-5.1) mmol/L 4.1 Chloride (98-107) mmol/L 104 Carbon Dioxide (21.0-32.0) mmol/L 23.9 Anion Gap (3-11) mmol/L 12.1 H BUN (7-18) mg/dL 18 Creatinine (0.55-1.02) mg/dL 1.4 H Est GFR (CKD-EPI 2020) (mL/min/1.73m2) 38.27 Glucose (74-106) mg/dL 138 H Calcium (8.5-10.1) mg/dL 9.0 Magnesium (1.8-2.4) mg/dL 2.0 Total Bilirubin (0.2-1.0) mg/dL 1.1 H AST (15-37) U/L 58 H ALT (14-59) U/L 77 H Alkaline Phosphatase (46-116) U/L 83 Troponin I < 50 NT-Pro-B Natriuret Pep 3679 H Total Protein (6.4-8.2) g/dL 8.0 Albumin (3.4-5.0) g/dL 3.4 COVID-19 Source SARS-CoV-2 (PCR) (Negative) Influenza Type A (PCR) (Negative) Influenza Type B (PCR) (Negative) RSV (PCR) (Negative)
[2022-11-01] MEDS: Normal Saline - Diluent 50 ML VIAL IJ (14:06)
[2022-11-01] MEDS: Omnipaque 350 MG/ML 500 ML BTL-Imaging package IJ (14:07)
[2022-11-01] MEDS: Normal Saline Flush 10 ML SYR IVP (14:08)
[2022-11-01] MEDS: Normal Saline 500 ML IV (14:41)
[2022-11-01] MEDS: Heparin in 0.45% NaCl 25,000 UNIT/250 ML BAG 16.5 UNIT IV (15:08)
[2022-11-01 15:28] LABS: INR 1.2 (0.9-1.1); PTT Activated 32.1 sec (21.5-31.9)
[2022-11-01 15:33] LABS: Troponin I < 50 ng/L (<or=60)
--- NOTE | 2022-11-01 15:57 | W.PM.HP.N ---
Date of service: 11/01/22 Time of Service: 15:57 Assessment and Plan Assessment and plan (1) Bilateral pulmonary embolism: Status: Acute Assessment and plan: With evidence of R heart strain on CT. Unfortunately, echo cannot be completed until Friday. Will monitor on tele. Treat with heparin gtt for now; may be able to convert to apixaban tomorrow. Check Venous dopplers of BLEs. GIven a strong family h/o cerebral hemorrhage, I think it would be maldonado of obtain CTA of the brain prior to discharge home to ensure that there is not an aneurysm. (2) Acute electrocardiogram changes: Status: Acute Assessment and plan: In setting of acute PE. Further ischemic workup right now does not make sense, but could be pursued in the future as an outpatient. (3) Leucocytosis: Status: Acute Assessment and plan: Suspect this is due to the acute PE. Will check a procalcitonin. Encourage IS. (4) History of DVT (deep vein thrombosis): Status: Resolved Assessment and plan: This was a provoked DVT; however, having a h/o DVT does make recurrent DVTs more likely. (5) Discharge planning issues: Status: Acute Assessment and plan: Full code as confirmed with the patient. History of Present Illness History of Present Illness Chief Complaint: Shortness of breath Narrative: Ms Duque is a 77 year old female with PMHx of prior DVT in setting of spinal surgery, as well as h/o HTN, hyperlipidemia, Meniere's disease, who presented to [facility] ED today c/o SOB, dizziness, and chest pain x 5 days. The chest pain was very mild. She did not think it warranted an ER visit, but when she was seen by her PCP today, she was referred to the ER for evaluation of her symptoms. The chest pain started on the left side of the chest, traveled across the chest and into the neck. The SOB was primarily on exertion, but exertion was minimal - such as just shifting in bed or taking a step or two. She denies fevers, endorses a nonproductive cough, denies blood in stool/urine. She does not take hormone replacement therapy. Her mother had a history of phlebitis in setting of trauma. There is no family h/o autoimmune disease. She does not smoke. Endorses 5-6 lb weight loss in 1 week. Due for her mammogram (her mother had breast cancer). Her ER workup revealed extensive bilateral pulmonary emboli with high clot load throughout both lung gr and evidence of R heart strain on CT. She did not require oxygen, with O2 saturation of 93% on RA, was mildly tachycardic and otherwise hemodynamically stable. Her troponins x 2 were negative. Her case was reviewed by [facility] [place] team who felt that the patient would not be a candidate for a thrombectomy and recommended admission at our facility, anticoagulation with heparin gtt, and switching to eliquis tomorrow. Hospitalist admission was requested. Importantly, the patient mentioned that both her father and paternal grandmother had of a cerebral hemorrhage. She states she has never had brain imaging. Review of Systems All systems reviewed & are unremarkable except as noted in HPI and below PFSH All Active Problems (Updated 11/01/22 @ 16:16 by Macrina Garcia MD) Discharge planning issues (Acute) Leucocytosis (Acute) Acute electrocardiogram changes (Acute) Bilateral pulmonary embolism (Acute) Syncope and collapse (Acute) Thyroid nodule (Acute) Amaurosis fugax of right eye (Acute) DVT (deep venous thrombosis) (Chronic) [facility] 08/13-08/16/19 - L peroneal vein. 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 Moyer excellent result Spinal stenosis of lumbar region with neurogenic claudication (Chronic) Surgical History Biopsy of breast (03/17/89) laminectomy L4 (06/04/16) Bilateral laminectomy L4-5 with medial facetectomy; [facility] Dr Matta 07/2019 extension of decompressive laminectomy Ligation of fallopian tube Status post lumbar spine surgery for decompression of spinal cord (08/10/19) L3-S1 Family History Mother , breast ca at age 83. Breast cancer VTE (venous thromboembolism) phlebitis in setting of trauma Social History Smoking/Tobacco Use Status: Never Second Hand Exposure: No Smoking risk assessment performed?: Yes Alcohol Intake: never Drug use: Never Household members: spouse Housing: house Number of Children: 2 Communication Needs: None current occupation: previously worked in [employer] Pets and animals: Yes Pets and animals: dog(s) Current gender identity: female What is your relationship status?: How often do you talk on the phone with friends or family?: three or more times per week Panel score (0-1 are the most socially isolated patients): 2 What type of physical activity do you participate in: none and other Duration: 15-30 minutes/day Frequency: 1-2 times per week Seatbelt use: always Drive intox or ride w/intox cdl dedicated truck driver: No Water heater temp set <120 deg: Yes Working smoke detector in home: Yes Fire extinguisher in home: Yes Carbon monox detector in home: Yes Do you feel safe at home: Yes Do you feel safe in your relationship?: Yes Meds Allergies and Home Medications Allergies Allergy/AdvReac Type Severity Reaction Status Date / Time atorvastatin AdvReac Intermediate cramps Verified 11/01/22 12:30 pravastatin AdvReac Intermediate stiffness Verified 11/01/22 12:30 Home Medications Medication Instructions Recorded Confirmed Type eumikpmcbqot-mblitmog-wziojy tablet 1 tab PO HS 12/31/18 11/01/22 History cholecalciferol (vitamin D3) 125 125 mcg PO DAILY 08/31/20 11/01/22 History mcg (5,000 unit) disintegrating tablet glucosamine-chondroitin 250 mg-200 2 tab PO QDAY 03/05/21 11/01/22 History mg tablet (Osteo Bi-Flex) meclizine 25 mg tablet 25 mg PO DAILY PRN dizziness #90 09/03/21 11/01/22 Rx tabs losartan 50 mg tablet 50 mg PO DAILY #90 tabs 05/02/22 11/01/22 Rx pyridoxine (vitamin B6) 100 mg 100 mg PO DAILY 08/01/22 11/01/22 History tablet Nervive Nerve Relief PO DAILY 11/01/22 History losartan 50 mg tablet 50 mg PO DAILY 11/01/22 11/01/22 History Exam Narrative Exam Narrative: General: Very pleasant female who looks much younger than her stated age, A&Ox3, appears comfortable in bed Neurological: A&Ox3, no focal deficits Psychiatric: Appropriate speech pattern/content Skin: Visible skin intact HEENT: Atraumatic, normocephalic, EOMI, MMM, clear oropharynx, no submandibular or cervical lymphadenopathy, no goiter or JVD Cardiovascular: RRR, mildly tachyardic, no m/r/g Lungs: CTAB Gastrointestinal: soft, nontender, nondistended Genitourinary: deferred Extremities: nonpitting edema BLEs, symmetric, +1 pedal pulses B, no c/c, no lesions on B feet Results Imaging Additional studies: CTA chest: 1. Extensive bilateral pulmonary emboli.? High clot load throughout both lung gr..Ventricular ratio is 1/1. 2. No evidence of pulmonary infarction at this time.? No infiltrates nor pleural effusions. 3. No evidence of aortic dissection nor pericardial effusion. EKG: HR 98, ST, inferolateral T wave inversions Labs 11/01/22 12:34 11/01/22 12:34 Labs: Laboratory Results - last 24 hr 11/01/22 11/01/22 11/01/22 12:30 12:34 12:34 WBC RBC Hgb Hct MCV MCH MCHC RDW Plt Count MPV Immature Gran % Neutrophils % Lymphocytes % Monocytes % Eosinophils % Basophils % Nucleated RBC % Absolute Neutrophils Absolute Lymphocytes Absolute Monocytes Absolute Eosinophils Absolute Basophils PT INR APTT D-Dimer > 7500 H Sodium Potassium Chloride Carbon Dioxide Anion Gap BUN Creatinine Est GFR (CKD-EPI 2020) Glucose Calcium Magnesium Total Bilirubin AST ALT Alkaline Phosphatase Troponin I Cancelled NT-Pro-B Natriuret Pep Cancelled Total Protein Albumin COVID-19 Source Nasopharynx SARS-CoV-2 (PCR) Negative Influenza Type A (PCR) Negative Influenza Type B (PCR) Negative RSV (PCR) Negative 11/01/22 11/01/22 11/01/22 12:34 12:34 15:08 WBC 12.99 H RBC 3.90 L Hgb 12.0 Hct 36.1 MCV 93 MCH 30.8 MCHC 33.2 RDW 11.4 L Plt Count 221 MPV 9.0 Immature Gran % 0.5 Neutrophils % 71.9 Lymphocytes % 16.1 Monocytes % 10.9 Eosinophils % 0.3 Basophils % 0.3 Nucleated RBC % 0.0 Absolute Neutrophils 9.34 H Absolute Lymphocytes 2.09 Absolute Monocytes 1.42 H Absolute Eosinophils 0.04 Absolute Basophils 0.04 PT INR APTT D-Dimer Sodium 140 Potassium 4.1 Chloride 104 Carbon Dioxide 23.9 Anion Gap 12.1 H BUN 18 Creatinine 1.4 H Est GFR (CKD-EPI 2020) 38.27 Glucose 138 H Calcium 9.0 Magnesium 2.0 Total Bilirubin 1.1 H AST 58 H ALT 77 H Alkaline Phosphatase 83 Troponin I < 50 < 50 NT-Pro-B Natriuret Pep 3679 H Total Protein 8.0 Albumin 3.4 COVID-19 Source SARS-CoV-2 (PCR) Influenza Type A (PCR) Influenza Type B (PCR) RSV (PCR) 11/01/22 15:08 WBC RBC Hgb Hct MCV MCH MCHC RDW Plt Count MPV Immature Gran % Neutrophils % Lymphocytes % Monocytes % Eosinophils % Basophils % Nucleated RBC % Absolute Neutrophils Absolute Lymphocytes Absolute Monocytes Absolute Eosinophils Absolute Basophils PT 12.0 H INR 1.2 H APTT 32.1 H D-Dimer Sodium Potassium Chloride Carbon Dioxide Anion Gap BUN Creatinine Est GFR (CKD-EPI 2020) Glucose Calcium Magnesium Total Bilirubin AST ALT Alkaline Phosphatase Troponin I NT-Pro-B Natriuret Pep Total Protein Albumin COVID-19 Source SARS-CoV-2 (PCR) Influenza Type A (PCR) Influenza Type B (PCR) RSV (PCR) Last Vital Signs Temp 36.8 C 11/01/22 12:05 Pulse 102 H 11/01/22 15:01 Resp 16 11/01/22 14:37 BP 141/87 H 11/01/22 15:01 Pulse Ox 91 L 11/01/22 15:50 Time Spent Time spent with Patient: 40-54 minutes Time was spent: preparing to see the patient(eg.review tests), obtaining and/or reviewing separately otained hiistory, ordering medications,tests, procedures, referring, communicating with other health child care sitter, indepentently interpreting results, counseling the patient and care coordination
[2022-11-01 16:37] LABS: Lab Add On Test DONE
[2022-11-01 17:20] LABS: Procalcitonin < 0.1 ng/mL
[2022-11-01 21:24] LABS: PTT Activated 80.8 sec (21.5-31.9)
[2022-11-01] MEDS: Multivitamin w/Minerals TAB 1 TAB PO (22:31)
[2022-11-01] MEDS: Losartan 25 MG TAB 50 MG PO (23:00)
[2022-11-02] VITALS (9 sets, daily range): BP systolic 111–166; BP diastolic 72–82; PULSE 77–93; RESP 16–22; TEMP 35.8–38; O2SAT 94–97
--- NOTE | 2022-11-02 | DI.US_ITS ---
Exam(s) US EXTREMITY VENOUS BI EXAM: US EXTREMITY VENOUS BI CLINICAL HISTORY: bilateral PEs TECHNIQUE: Grayscale, color, and doppler imaging of the deep venous system of both lower extremities was performed. COMPARISON: Chest CT scan of 11/01/2022 FINDINGS: There is no DVT in the right lower extremity. However, there is DVT in the left lower extremity at the level the popliteal vein, this vessel clotte d over a length of 4 cm. The femoral vein above this level appears patent. Visualized veins of the calf appear patent. The greater saphenous veins also appear patent as do the saphenofemoral junctions bilaterally.. IMPRESSION: This study is positive for DVT in the left popliteal vein. Length of the clot is approximately 4 cm. No evidence of DVT in the opposite-right leg DATA REPOSITORY:
[2022-11-02 03:01] LABS: PTT Activated 77.9 sec (21.5-31.9)
[2022-11-02 07:04] LABS: Abs Immature Grans 0.04 10^3/uL (0.0-0.06); Absolute Basophil Count 0.04 10^3/uL (0.0-0.2); Absolute Eosinophil Count 0.24 10^3/uL (0.0-0.7); Absolute Lymphocyte Count 2.25 10^3/uL (1.2-3.4); Absolute Monocyte Count 1.18 10^3/uL (0.1-0.8); Absolute Neutrophil Count 4.71 10^3/uL (1.2-6.7); Basophils % 0.5; Eosinophils % 2.8; HCT 31.4 % (36.0-46.0); HGB 10.5 g/dL (11.2-15.7); Immature Grans % 0.5; Lymphocytes % 26.6; MCH 31.2 pg (27.0-33.0); MCHC 33.4 % (32.0-36.0); MCV 93 fL (80-95); MPV 9.7 fL (8.0-11.0); Monocytes % 13.9; Neutrophils % 55.7; Platelet Count 218 10^3/uL (130-400); RBC 3.37 10^6/uL (3.93-5.22); RDW 11.4 % (11.7-14.6); RDW-SD 38.8 fL; WBC 8.46 10^3/uL (4.4-10.8)
[2022-11-02 07:25] LABS: Anion Gap 12.4 mmol/L (3-11); BUN 20 mg/dL (7-18); CO2 21.6 mmol/L (21.0-32.0); CREATININE 1.3 mg/dL (0.55-1.02); Calcium 8.8 mg/dL (8.5-10.1); Chloride 107 mmol/L (98-107); Estimated GFR 41.83 (mL/min/1.73m2); Glucose 106 mg/dL (74-106); Magnesium 2.2 mg/dL (1.8-2.4); Potassium 3.5 mmol/L (3.5-5.1); Sodium 141 mmol/L (136-145)
[2022-11-02] MEDS: Cholecalciferol (Vitamin D3) 1,000 UNIT TAB 5000 UNITS PO (08:21)
[2022-11-02] MEDS: Glucosamine/Chondroitin CAP 1 CAP PO (08:21)
--- NOTE | 2022-11-02 09:42 | PDOC.CMIN ---
Date of service: 11/02/22 Time of Service: 09:42 Care Management Initial Assmt Initial Assessment REASON FOR HOSPITALIZATION:: Acute PE with Right Heart Strain PREVIOUS FUNCTIONAL STATUS/SOCIAL/FAMILY SUPPORTS:: Nini lives in [place] with her [place]. They have two adult children, both of whom live out of state. 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 Nini drives and is independent with her ADLs at baseline. CURRENT FUNCTIONAL STATUS:: Nini is lying in bed when CM comes to meet with her. She easily engages in conversation and says if she had not had a routine follow-up with her PCP, she likely would never have come to the hospital as she dismissed her symptoms and didn't think it was anything to worry about. She recounts the events of yesterday and is thankful her PCP sent her to the emergency room. ADVANCE DIRECTIVES:: None on file. Has patient been provided with info about the portal/API?: Yes Did the patient sign up for the portal?: Yes (Previously enrolled.) CODE STATUS:: Full Code INSURANCE COVERAGE / FINANCIAL ISSUES:: Supplemental Insurance and Medicare. CURRENT HOME/COMMUNITY SERVICES/EQUIPMENT:: No home/community services. Nini owns a cane, a walker and a three prong cane with a folding seat. PRIMARY CARE PHYSICIAN:: Matt Doss, POTENTIAL DISCHARGE NEEDS:: Follow up appointment with PCP and discharge plan of care. PATIENT/FAMILY EDUCATION NEEDS:: Review of discharge instructions including medications, limitations and follow up plan of care; discuss Ask Me Three. ANTICIPATED BARRIERS TO DISCHARGE:: None anticipated at this time. TRANSPORTATION:: Via private vehicle with . PLAN:: Nini will likely be discharged home with no services when medically cleared. She will follow up with her PCP and plan of care as instructed. She will be transported home by her via private vehicle when ready. CM will continue to follow. PFSH All Active Problems (Updated 11/02/22 @ 15:37 by Macrina Garcia MD) Deep vein thrombosis (DVT) of popliteal vein of left lower extremity (Acute) Discharge planning issues (Acute) Leucocytosis (Acute) Acute electrocardiogram changes (Acute) Bilateral pulmonary embolism (Acute) Syncope and collapse (Acute) Thyroid nodule (Acute) Amaurosis fugax of right eye (Acute) DVT (deep venous thrombosis) (Chronic) [facility] [place] [place] 08/13-08/16/19 - L peroneal vein. 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 Moyer excellent result Spinal stenosis of lumbar region with neurogenic claudication (Chronic) Surgical History Biopsy of breast (03/17/89) laminectomy L4 (06/04/16) Bilateral laminectomy L4-5 with medial facetectomy; [facility] [place] [place] Dr Matta 07/2019 extension of decompressive laminectomy Ligation of fallopian tube Status post lumbar spine surgery for decompression of spinal cord (08/10/19) L3-S1 Family History (Updated 11/01/22 @ 18:21 by Macrina Garcia MD) Mother , breast ca at age 83. Breast cancer VTE (venous thromboembolism) phlebitis in setting of trauma Social History Smoking/Tobacco Use Status: Never Second Hand Exposure: No Smoking risk assessment performed?: Yes Alcohol Intake: never Drug use: Never Household members: spouse Housing: house Number of Children: 2 Communication Needs: None current occupation: previously worked in [employer] Pets and animals: Yes Pets and animals: dog(s) Current gender identity: female What is your relationship status?: How often do you talk on the phone with friends or family?: three or more times per week Panel score (0-1 are the most socially isolated patients): 2 What type of physical activity do you participate in: none and other Duration: 15-30 minutes/day Frequency: 1-2 times per week Seatbelt use: always Drive intox or ride w/intox dedicated truck driver: No Water heater temp set <120 deg: Yes Working smoke detector in home: Yes Fire extinguisher in home: Yes Carbon monox detector in home: Yes Do you feel safe at home: Yes Do you feel safe in your relationship?: Yes
--- NOTE | 2022-11-02 10:24 | DI.VRAD_ITS ---
PROCEDURE INFORMATION: Preliminary report Exam: US Duplex Lower Extremity Veins, Bilateral Exam date and time: 11/02/2022 9:40 AM Age: 77 years old Clinical indication: Other: Bilateral pe TECHNIQUE: Imaging protocol: Real-time duplex ultrasound of the bilateral extremities with 2-D brown scale, color Doppler flow and spectral waveform analysis including responses to compression and other maneuvers (when performed) with image documentation. Complete exam focused on the lower extremity veins. COMPARISON: US LOWER EXTREMITY VENOUS LT 11/19/2019 12:54 PM FINDINGS: Right deep veins: No deep venous thrombosis in the visualized right common femoral, femoral, or popliteal veins. Left deep veins: No deep venous thrombosis in the visualized left common femoral or superficial femoral veins. Deep venous thrombosis in the left popliteal vein. Superficial veins: Bilateral saphenofemoral junctions are patent without thrombus. Soft tissues: Unremarkable. IMPRESSION: 1. Deep venous thrombosis in the left popliteal vein. 2. No deep venous thrombosis in the visualized right lower extremity. The aforementioned findings initiated a critical results communication pathway. An addendum will be issued at the time of clincian notification. Dictated and Authenticated by: Carlos Denis MD. Ordering:KOLBY Schrader MD
--- NOTE | 2022-11-02 10:27 | DI.VRAD_ITS ---
Addendum created by Carlos Denis MD on 11/02/2022 10:26:57 AM EDT: THIS REPORT CONTAINS FINDINGS THAT MAY BE CRITICAL TO PATIENT CARE. The findings were verbally communicated via telephone conference with Macrina West at 10:26 AM EDT on 11/02/2022. The findings were acknowledged and understood. Initial report created on 11/02/2022 10:24:07 AM EDT: PROCEDURE INFORMATION: Preliminary report Exam: US Duplex Lower Extremity Veins, Bilateral Exam date and time: 11/02/2022 9:40 AM Age: 77 years old Clinical indication: Other: Bilateral pe TECHNIQUE: Imaging protocol: Real-time duplex ultrasound of the bilateral extremities with 2-D brown scale, color Doppler flow and spectral waveform analysis including responses to compression and other maneuvers (when performed) with image documentation. Complete exam focused on the lower extremity veins. COMPARISON: US LOWER EXTREMITY VENOUS LT 11/19/2019 12:54 PM FINDINGS: Right deep veins: No deep venous thrombosis in the visualized right common femoral, femoral, or popliteal veins. Left deep veins: No deep venous thrombosis in the visualized left common femoral or superficial femoral veins. Deep venous thrombosis in the left popliteal vein. Superficial veins: Bilateral saphenofemoral junctions are patent without thrombus. Soft tissues: Unremarkable. IMPRESSION: 1. Deep venous thrombosis in the left popliteal vein. 2. No deep venous thrombosis in the visualized right lower extremity. The aforementioned findings initiated a critical results communication pathway. An addendum will be issued at the time of clincian notification. Dictated and Authenticated by: Carlos Denis MD. Ordering:KOLBY Schrader MD
--- NOTE | 2022-11-02 11:30 | RT.EKG_ITS ---
APPROVED REPORT Exam: Resting ECG Reason for Exam: chest pain Patient Location: I HR:76 bpm ECG Measurements Heart Rate 76 AXIS DC 164 P 64 QRSd 103 QRS 16 QT 460 T 147 QTc 518 Conclusion Sinus rhythm...normal P axis, V-rate 50- 99 Abnrm T, consider ischemia, anterolateral lds...T <-0.20mV, I aVL V2-V6 Prolonged QT interval...QTc >500mS Baseline wander in lead(s) II,III,aVF
[2022-11-02 12:13] LABS: Troponin I < 50 ng/L (<or=60)
--- NOTE | 2022-11-02 15:20 | W.PM.PROGNOT ---
Date of Service Date of service: 11/02/22 Time of Service: 15:20 Assessment and Plan Assessment and plan (1) Bilateral pulmonary embolism: Status: Acute Assessment and plan: Present on admission, in setting of LLE DVT. With evidence of R heart strain on CT. Unfortunately, echo cannot be completed until Friday. Continue to monitor on tele. No arrhythmias so far Will switch to apixaban. Given a strong family h/o cerebral hemorrhage, I think it would be maldonado of obtain CTA of the brain prior to discharge home to ensure that there is not an aneurysm. (2) Deep vein thrombosis (DVT) of popliteal vein of left lower extremity: Status: Acute Assessment and plan: As above (3) Acute electrocardiogram changes: Status: Acute Assessment and plan: In setting of acute PE. Further ischemic workup right now does not make sense, but could be pursued in the future as an outpatient. Obtaining an echocardiogram on Friday (4) Leucocytosis: Status: Acute Assessment and plan: Suspect this is due to the acute PE. WBC normalized and procalcitonin was negative. No role for abx. Encourage IS. (5) History of DVT (deep vein thrombosis): Status: Resolved Assessment and plan: This was a provoked DVT after spinal surgery; however, having a h/o DVT does make recurrent DVTs more likely. (6) Discharge planning issues: Status: Acute Assessment and plan: Full code as confirmed with the patient. Continues to require hospitalization. Subjective Subjective Interval history since last seen: Reports a mild episode of chest pain this morning, resolving on its own. Endorses dizziness when ambulating, endorses CROSS. Denies n/v. We discussed the results of the LE doppler. Exam Narrative Exam Narrative: General: A&Ox3, NAD HEENT: EOMI, MMM Cardiovascular: RRR, no m/r/g Lungs: CTAB Gastrointestinal: soft, nontender, nondistended Extremities: nonpitting edema BLEs, symmetric, +1 pedal pulses B, no c/c, no lesions on B feet Objective Last Vital Signs Temp 35.8 C L 11/02/22 10:55 Pulse 79 11/02/22 10:55 Resp 22 11/02/22 10:55 BP 131/77 11/02/22 10:55 Pulse Ox 96 11/02/22 10:55 Laboratory Results - last 24 hr 08/11/01/22 11/01/22 15:08 15:08 15:08 WBC RBC Hgb Hct MCV MCH MCHC RDW Plt Count MPV Immature Gran % Neutrophils % Lymphocytes % Monocytes % Eosinophils % Basophils % Nucleated RBC % Absolute Neutrophils Absolute Lymphocytes Absolute Monocytes Absolute Eosinophils Absolute Basophils PT 12.0 H INR 1.2 H APTT 32.1 H Sodium Potassium Chloride Carbon Dioxide Anion Gap BUN Creatinine Est GFR (CKD-EPI 2020) Glucose Calcium Magnesium Troponin I < 50 Procalcitonin < 0.1 Add-On Test Request 11/01/22 11/01/22 11/02/22 16:36 20:43 02:43 WBC RBC Hgb Hct MCV MCH MCHC RDW Plt Count MPV Immature Gran % Neutrophils % Lymphocytes % Monocytes % Eosinophils % Basophils % Nucleated RBC % Absolute Neutrophils Absolute Lymphocytes Absolute Monocytes Absolute Eosinophils Absolute Basophils PT INR APTT 80.8 H* Cancelled Sodium Potassium Chloride Carbon Dioxide Anion Gap BUN Creatinine Est GFR (CKD-EPI 2020) Glucose Calcium Magnesium Troponin I Procalcitonin Add-On Test Request DONE 11/02/22 11/02/22 11/02/22 02:44 06:30 06:30 WBC 8.46 RBC 3.37 L Hgb 10.5 L Hct 31.4 L MCV 93 MCH 31.2 MCHC 33.4 RDW 11.4 L Plt Count 218 MPV 9.7 Immature Gran % 0.5 Neutrophils % 55.7 Lymphocytes % 26.6 Monocytes % 13.9 Eosinophils % 2.8 Basophils % 0.5 Nucleated RBC % 0.0 Absolute Neutrophils 4.71 Absolute Lymphocytes 2.25 Absolute Monocytes 1.18 H Absolute Eosinophils 0.24 Absolute Basophils 0.04 PT INR APTT 77.9 H Sodium 141 Potassium 3.5 Chloride 107 Carbon Dioxide 21.6 Anion Gap 12.4 H BUN 20 H Creatinine 1.3 H Est GFR (CKD-EPI 2020) 41.83 Glucose 106 Calcium 8.8 Magnesium 2.2 Troponin I Procalcitonin Add-On Test Request 11/02/22 11:50 WBC RBC Hgb Hct MCV MCH MCHC RDW Plt Count MPV Immature Gran % Neutrophils % Lymphocytes % Monocytes % Eosinophils % Basophils % Nucleated RBC % Absolute Neutrophils Absolute Lymphocytes Absolute Monocytes Absolute Eosinophils Absolute Basophils PT INR APTT Sodium Potassium Chloride Carbon Dioxide Anion Gap BUN Creatinine Est GFR (CKD-EPI 2020) Glucose Calcium Magnesium Troponin I < 50 Procalcitonin Add-On Test Request Objective Narrative Objective Narrative: US venous BLEs: 1. ? Deep venous thrombosis in the left popliteal vein. 2. ? No deep venous thrombosis in the visualized right lower extremity. Time Spent with Patient Time Spent with Patient: 35-49 minutes Time was spent: preparing to see the patient(eg.review tests), obtaining and/or reviewing separately otained hiistory, ordering medications,tests, procedures, referring, communicating with other health live in caregiver, indepentently interpreting results, counseling the patient and care coordination
[2022-11-02 15:31] LABS: Troponin I < 50 ng/L (<or=60)
[2022-11-02] MEDS: Apixaban 5 MG TAB 10 MG PO (20:51)
[2022-11-02] MEDS: Multivitamin w/Minerals TAB 1 TAB PO (21:28)
[2022-11-02] MEDS: Losartan 50 MG TAB PO (21:28)
[2022-11-03] VITALS (9 sets, daily range): BP systolic 114–144; BP diastolic 69–80; PULSE 66–97; RESP 16–22; TEMP 36.4–38; O2SAT 93–97
[2022-11-03 07:02] LABS: Abs Immature Grans 0.04 10^3/uL (0.0-0.06); Absolute Basophil Count 0.03 10^3/uL (0.0-0.2); Absolute Eosinophil Count 0.24 10^3/uL (0.0-0.7); Absolute Lymphocyte Count 2.12 10^3/uL (1.2-3.4); Absolute Monocyte Count 1.11 10^3/uL (0.1-0.8); Basophils % 0.4; Eosinophils % 2.8; HCT 30.3 % (36.0-46.0); HGB 10.2 g/dL (11.2-15.7); Immature Grans % 0.5; Lymphocytes % 25.1; MCH 31.5 pg (27.0-33.0); MCHC 33.7 % (32.0-36.0); MCV 94 fL (80-95); MPV 9.3 fL (8.0-11.0); Monocytes % 13.2; Platelet Count 219 10^3/uL (130-400); RBC 3.24 10^6/uL (3.93-5.22); RDW 11.5 % (11.7-14.6); RDW-SD 39.2 fL; WBC 8.44 10^3/uL (4.4-10.8)
[2022-11-03 07:12] LABS: PTT Activated 28.6 sec (21.5-31.9)
[2022-11-03 07:22] LABS: Anion Gap 11.2 mmol/L (3-11); BUN 17 mg/dL (7-18); CO2 22.8 mmol/L (21.0-32.0); CREATININE 1.1 mg/dL (0.55-1.02); Calcium 8.7 mg/dL (8.5-10.1); Chloride 107 mmol/L (98-107); Estimated GFR 51.11 (mL/min/1.73m2); Glucose 103 mg/dL (74-106); Magnesium 2.2 mg/dL (1.8-2.4); Potassium 3.8 mmol/L (3.5-5.1); Sodium 141 mmol/L (136-145)
[2022-11-03] MEDS: Cholecalciferol (Vitamin D3) 1,000 UNIT TAB 5000 UNITS PO (07:57)
[2022-11-03] MEDS: Apixaban 5 MG TAB 10 MG PO ×2 (07:57→19:36)
[2022-11-03] MEDS: Glucosamine/Chondroitin CAP 1 CAP PO (08:14)
--- NOTE | 2022-11-03 14:58 | W.PM.PROGNOT ---
Date of Service Date of service: 11/03/22 Time of Service: 14:58 Assessment and Plan Assessment and plan (1) Bilateral pulmonary embolism: Status: Acute Assessment and plan: large bilateral PE, and left popliteal DVT. patient has prior hx prior DVT associated w/ spinal surgery however her current DVT may have been related to prolonged car trips to [place] last month. Nevertheless she will probably need lifetime of anticoagulation. In light of her chronic dizziness and her family hx of cerebral hemorrhage I would recommend w/ CTA of brain to rule out any aneurysms since she will need intermediate project manager anticoagulation. (2) Deep vein thrombosis (DVT) of popliteal vein of left lower extremity: Status: Acute Assessment and plan: continue apixaban (3) History of DVT (deep vein thrombosis): Status: Resolved Assessment and plan: related to prior spinal surgery (4) Meniere's disease: Status: Chronic Assessment and plan: will give her meclizine which she says has helped her in the past. (5) Discharge planning issues: Status: Acute Assessment and plan: Full code as confirmed with the patient. Continues to require hospitalization. Subjective Subjective Interval history since last seen: Patient only concern is a feeling of dizziness. Her dyspnea is improved but still present w/ activity. I talked with her about getting CTA of her head given her long hx of Meniere's and her family hx of cerebral hemorrhage (father and PGM). She recalls that she in fact did go on a long trip to [place] on a 12h car ride w/ only couple stops along the way. This occurred late September (October 09-) making the trip each way in one day. Exam Narrative Exam Narrative: She is alert and oriented, no acute distress Lungs: clear Heart: regular, no murmur or rub, no prolonged P2 Legs: no edema or pain, she has some superficial venous varicosities Objective Last Vital Signs Temp 37.6 C H 11/03/22 12:11 Pulse 82 11/03/22 12:11 Resp 16 11/03/22 12:11 BP 129/69 11/03/22 12:11 Pulse Ox 97 11/03/22 12:11 Laboratory Results - last 24 hr 11/02/22 11/03/22 11/03/22 14:50 06:30 06:30 WBC RBC Hgb Hct MCV MCH MCHC RDW Plt Count MPV Immature Gran % Neutrophils % Lymphocytes % Monocytes % Eosinophils % Basophils % Nucleated RBC % Absolute Neutrophils Absolute Lymphocytes Absolute Monocytes Absolute Eosinophils Absolute Basophils APTT 28.6 Sodium 141 Potassium 3.8 Chloride 107 Carbon Dioxide 22.8 Anion Gap 11.2 H BUN 17 Creatinine 1.1 H Est GFR (CKD-EPI 2020) 51.11 Glucose 103 Calcium 8.7 Magnesium 2.2 Troponin I < 50 C-Reactive Protein 7.90 H 11/03/22 06:30 WBC 8.44 RBC 3.24 L Hgb 10.2 L Hct 30.3 L MCV 94 MCH 31.5 MCHC 33.7 RDW 11.5 L Plt Count 219 MPV 9.3 Immature Gran % 0.5 Neutrophils % 58.0 Lymphocytes % 25.1 Monocytes % 13.2 Eosinophils % 2.8 Basophils % 0.4 Nucleated RBC % 0.0 Absolute Neutrophils 4.90 Absolute Lymphocytes 2.12 Absolute Monocytes 1.11 H Absolute Eosinophils 0.24 Absolute Basophils 0.03 APTT Sodium Potassium Chloride Carbon Dioxide Anion Gap BUN Creatinine Est GFR (CKD-EPI 2020) Glucose Calcium Magnesium Troponin I C-Reactive Protein Time Spent with Patient Time Spent with Patient: 25-34 minutes Time was spent: preparing to see the patient(eg.review tests), ordering medications,tests, procedures, indepentently interpreting results, counseling the patient and care coordination
[2022-11-03] MEDS: Losartan 50 MG TAB PO (19:36)
[2022-11-03] MEDS: Meclizine 25 MG TAB PO (19:36)
[2022-11-03] MEDS: Multivitamin w/Minerals TAB 1 TAB PO (19:36)
[2022-11-04] VITALS: PULSE 100
[2022-11-04 03:44] VITALS: BP 105/68; PULSE 93; RESP 16; TEMP 37.1; O2SAT 96
[2022-11-04 06:35] VITALS: BP 117/71; PULSE 78; RESP 16; TEMP 36.8; O2SAT 95
[2022-11-04 07:00] VITALS: PULSE 72
[2022-11-04] MEDS: Normal Saline - Diluent 50 ML VIAL IJ (08:12)
[2022-11-04] MEDS: Omnipaque 350 MG/ML 100 ML BTL IJ (08:12)
--- NOTE | 2022-11-04 08:30 | DI.CT_ITS ---
Exam(s) CT BRAIN NECK CTA EXAM: CT BRAIN NECK CTA CLINICAL HISTORY: severe dizziness, headach. TECHNIQUE: Imaging Protocol: Axial CT angiography was performed with multi-slice acquisition and mu lti-planar and/or 3D reconstructions. CONTRAST MATERIAL: Intravenous: Omnipaque 350 contrast volume:85 mL COMPARISON: CT CHEST WITHOUT CONTRAST from 02/16/[address] CHEST PE CTA from 11/01/2022 FINDINGS: CT Head W/O and W: Ventricles and Extra axial spaces: Normal in size and morphology for the patient's age. Hemorrhage: None. Cerebral parenchyma: There is no evidence of an acute territorial infarct. There are areas of decrea sed attenuation in the white matter most consistent with small vessel ischemic disease. Midline shift: None. Brainstem/Cerebellum: Normal. Calvarium: Normal. Visualized Paranasal sinuses/Mastoids: Clear. Soft Tissues: Unremarkable. Enhancement: Unremarkable. CTA Neck W: Common Carotid: Right: No dissection, occlusion or significant stenosis. Atherosclerosis in the carotid bulb. Left: No dissection, occlusion or significant stenosis. External Carotid: Right: No occlusion or significant stenosis. Left: No occlusion or significant stenosis. Internal Carotid: Right: No dissection, occlusion or significant stenosis. Mild atherosclerosis. Left: No dissection, occlusion or significant stenosis. Mild atherosclerosis. Vertebral Artery: Right: No dissection, occlusion or significant stenosis. Atherosclerosis in the distal vertebral art juanjose. Left: No dissection, occlusion or significant stenosis. Atherosclerosis in the distal vertebral barbara ry. Lung Apices: Note is again made of bilateral pulmonary emboli. This was diagnosed on the patient's C T scan of the chest from 11/01/2022. Bones: Within normal limits for the patient's age. There is a mild right convex curvature of the cerv ical spine. Soft Tissues: Normal. Thyroid gland: Unremarkable. Calcifications are seen in the thyroid gland. CTA Brain W: Internal Carotid Arteries: There is dense calcification of the internal carotid arteries bilaterally. There does appear to be approximately 70 percent narrowing of the supraclinoid left internal caroti d artery and 50 percent narrowing of the right supraclinoid internal carotid artery. No occlusion is seen. Anterior Cerebral Arteries: Right: No aneurysm, occlusion or significant stenosis. Left: No aneurysm, occlusion or significant stenosis. Middle Cerebral Arteries: Right: No aneurysm, occlusion or significant stenosis. Left: No aneurysm, occlusion or significant stenosis. Posterior Cerebral Arteries: Right: No aneurysm, occlusion or significant stenosis. Left: No aneurysm, occlusion or significant stenosis. Vertebral Arteries: Right: No aneurysm, occlusion or significant stenosis. Left: No aneurysm, occlusion or significant stenosis. Basilar Artery: No aneurysm, occlusion or significant stenosis. IMPRESSION: 1. 50 percent stenosis of the right internal carotid artery and 70 percent stenosis of the left inter nal carotid artery. There is dense calcification of the intracranial cavernous portion internal white tid artery. No occlusion. 2. No acute intracranial process. 3. No occlusion or significant stenosis on the CT angiography of the neck. 4. Findings were discussed with Dr. Silva at 1 p.m. on 11/04/2022. 5. Persistent pulmonary emboli. This was diagnosed on the patient's CT scan from 11/01/2022. RADIATION DOSE DELIVERED: 2,058.25mGy.cm Total DLP DATA REPOSITORY: All CT scans at this facility are submitted to the National Radiology Data Registry (NRDR) Dose Index Registry (DIR) with the [employer] ([employer]). RADIATION OPTIMIZATION: All CT scans at this facility use at least one of these dose optimization te chniques: automated exposure control; mA and/or kV adjustment per patient size (includes targeted exa ms where dose is matched to clinical indication); or iterative reconstruction.
--- NOTE | 2022-11-04 09:17 | PDOC.CMPRO ---
Date of service: 11/04/22 Time of Service: 09:17 Care Management Progress Note Progress Note Text Progress Note Text: S/O: A: Nini is a 77 year old woman admitted on 11/02/22 with a PE and right heart strain P:Nini will likely be discharged home with no services when medically cleared.? She will follow up with her PCP and plan of care and transport home by her via private vehicle when ready.? CM will continue to follow.
[2022-11-04] MEDS: Cholecalciferol (Vitamin D3) 1,000 UNIT TAB 5000 UNITS PO (09:34)
[2022-11-04] MEDS: Glucosamine/Chondroitin CAP 1 CAP PO (09:34)
[2022-11-04] MEDS: Apixaban 5 MG TAB 10 MG PO (09:35)
[2022-11-04 11:48] VITALS: BP 135/81; PULSE 100; RESP 18; TEMP 37.8; O2SAT 95
--- NOTE | 2022-11-04 14:12 | DSE_ITS ---
Date of service: 11/04/22 Time of Service: 14:12 DS: Diagnosis Discharge Diagnosis (1) Bilateral pulmonary embolism: Status: Acute (2) Deep vein thrombosis (DVT) of popliteal vein of left lower extremity: Status: Acute (3) History of DVT (deep vein thrombosis): Status: Resolved (4) Meniere's disease: Status: Chronic (5) Discharge planning issues: Status: Acute Discharge Plan Disposition Patient Disposition: Home Condition: Improving Discharge Details Reason For Visit: Acute PE with R Heart Strain Admit Date/Time: 11/01/22 15:53 Admit Provider: Macrina Garcia Attending Provider: Macrina Garcia Primary Care Provider: Matt Doss [facility] Course Hospital Course: 77-year-old female non-smoker with a remote history of DVT secondary immobility secondary to spinal surgery. Patient had been successfully treated with apixaban in the past for 3 months and was not on any anticoagulation when she presented emergency department with recent onset of shortness of breath. Patient had recently completed long distance travel and I 12-hour car journey to [place] with her 2 and half weeks prior to her current presentation. Evaluation in the emergency department demonstrated large bilateral pulmonary emboli with extension in the distal aspects of both the right and left main pulmonary arteries and extending into the more peripheral branches of all lobes of both lungs with evidence of right ventricular strain. CT scan showed cardiomegaly with right ventricular dilatation with RV to LV ratio of 1:1. Venous duplex scan of her legs shows a DVT in the left femoral vein. Patient was started on heparin drip and then switched to apixaban 10 mg twice a day. First dose was given on the evening of 11/02/2022 she was continued on 10 mg twice a day all through her day of discharge on 11/04/2022. Echocardiogram was performed on 11/04/2022 which demonstrated normal left ventricular size and thickness and normal LV wall motion with an EF of 55 to 60% however she has borderline dilated right ventricle with preserved systolic function. Both atria are mildly dilated. Patient has moderate tricuspid regurgitation with an est imated RVSP of 49 mm. Patient did well with anticoagulation with no complications. Dyspnea did progressively improve over the next couple days. Patient never required supplemental oxygen. Patient does suffer from M?ni?re's disease and did have an episode of vertigo which improved with meclizine. Patient underwent a CTA of her head neck because of a family history of cerebral hemorrhage because the patient's longstanding intermittent vertigo. CTA of the head neck showed a 50% narrowing of the right internal carotid artery and 70% stenosis of the left internal carotid artery within the intracranial portion at the supraclinoid level point. No occlusion was seen. No occlusion or stenosis was seen in the neck vessels. These results were conveyed to the patient and suggested that she follow-up with her primary care physician and discuss going on a statin therapy to treat her atherosclerosis. Patient will be discharged home on continued apixaban 10 mg twice a day for another 5 days. 2 more doses will be dispensed from the hospital pharmacy for her to take home Nielson for tonight and 1 for tomorrow. These will be to 5 mg tablets for each dose. She is then to complete 5 more days of 10 mg twice a day and then go on 5 mg twice a day indefinitely. Patient was advised that because this was her second thromboembolic event and because of the severity of it she may want to consider lifetime of anticoagulation. However because it was a provoked event she should discuss her future risks with a specialist. I recommend that she see Dr. Orquidea Dyson, public information specialist [facility] or have her primary care provider refer her to a records management coordinator to discuss her risk for future pulmonary emboli. I advised the patient that I would recommend lifetime of anticoagulation but she should discuss her risks of bleeding versus future pulmonary emboli with either her public information specialist or records management coordinator. I also advised the patient that she should wear venous compression stockings to reduce the edema from her DVT and to prevent future DVTs on long distance travel. Home Meds and New Rx's Prescriptions: New Eliquis 5 mg tablet 5 mg PO DIRECTED Qty: 70 0RF Rx Instructions: take two tablets by mouth twice a day x 7 days then decrease dose to one tablet by mouth twice per day for minimum 3 months Continued [id number] Tablet 1 tab PO HS glucosamine-chondroitin [Osteo Bi-Flex] 250-200 mg tablet 2 tab PO QDAY cholecalciferol (vitamin D3) 125 mcg (5,000 unit) tablet,disintegrating 125 mcg PO DAILY meclizine 25 mg tablet 25 mg PO DAILY PRN (Reason: dizziness) Qty: 90 0RF Rx Instructions: as needed for Meniere's losartan 50 mg tablet 50 mg PO DAILY Qty: 90 3RF pyridoxine (vitamin B6) 100 mg tablet 100 mg PO DAILY Patient Comments: Unsure of actual dose Nervive Nerve Relief PO DAILY losartan 50 mg Tablet 50 mg PO DAILY Discharge Instructions Instructions: Apixaban (By mouth), Pulmonary Embolism (DC) Additional Instructions: You were found to have large bilateral pulmonary emboli involving the right and left main pulmonary arteries. This was the cause of your acute shortness of breath. You were also found to have a blood clot in your left popliteal vein. The blood clot in your pulmoary arteries was extensive enough to cause strain of the right ventricle of your heart. You have been started on a blood thinner called Apixaban (brand Eliquis). You should take 10 mg by mouth twice a day about 12h apart for the next 5 days (you already have had 2 days worth, ie. you had 10 mg on evening of 11/02, and two doses on 11/03 and one dose this morning. You will be sent home w/ a dose for this evening and for tomorrow morning. This will be dispensed from our pharmacy to take home with you until you get your prescription filled. Once you have completed 7 full days of 10 mg twice a day (two 5 mg tabs twice a day) then you should decrease your dose to 5 mg twice a day. I am recommending that you see a public information specialist or a records management coordinator to discuss whether or not you need a lifetime of treatment w/ anticoagulants given that this is your second thrombotic event in your life and this one was a life threatening pulmonary embolus. Your first DVT was provoked and associated w/ surgery and I believe your most recent event probably was also provoked event due to your recent long car trip to [place]. Nevertheless, a 2nd event of this severity deserves consideration for lifetime of treatment w/ anticoagulation. Dr. Dyson is a public information specialist affiliated w/ [facility] and she would be happy to see you to discuss your risks for future thromboembolism and optimum prevention. For now you need to remain on Eliquis (apixaban) for at a minimum of 3 months. do not stop taking apixaban without an evaluation by a specialist. Stand Alone Forms: Nursing Discharge Form Referrals: Matt Doss DO [Primary Care Provider] - 11/19/22 11:15 am Activity:: Activity as Tolerated Equipment/Supplies:: No Equipment Needed Diet:: Normal Diet Discharge Orders Discharge Orders: Discharge Order (Routine); Ordered 11/04/22 Ordered By: Fred Silva DS: Summary Time Spent with Patient providing and/or coordinating discharge services: Greater than 30 minutes Status at Discharge Functional status at discharge: independent ambulation Overall status at discharge: patient is progressing back to baseline Mental Status: mental status grossly normal Speech and Movement: speech and movement normal Mood: congruent mood Affect: normal affect Exam Narrative Exam Narrative: Nini is alert and oriented per space time circumstance no acute distress not short of breath. Not using accessory respiratory muscles. Lungs are clear to auscultation Heart is regular rate and rhythm no appreciable murmur rub or gallop no prolonged S2 Abdomen obese soft and nontender Extremities slight edema to left ankle and foot and calf compared to the right calf is nontender to palpation soft. Psych Mental Status: mental status grossly normal Speech and Movement: speech and movement normal Mood: congruent mood Affect: normal affect DS: Data Vitals/I&O Vitals and I&O: Vital Signs Temperature 37.8 C H 11/04/22 11:48 Temperature Source Tympanic 11/04/22 11:48 Pulse 100 H 11/04/22 11:48 Pulse Rhythm Regular 11/04/22 09:38 Pulse 95 H 11/01/22 16:30 Respiratory Rate 18 11/04/22 11:48 Respiratory Effort Normal, Non-Labored 11/04/22 09:38 Respiratory Depth Normal 11/04/22 09:38 Respiratory Pattern Normal 11/04/22 09:38 Blood Pressure 135/81 11/04/22 11:48 Blood Pressure Mean 99 11/01/22 15:01 Blood Pressure Position Sitting 11/01/22 12:05 Pulse Oximetry 95 11/04/22 11:48 Oxygen Delivery Method Room Air 11/04/22 11:48 Oxygen Flow Rate 0 11/04/22 11:48 Pain Level 0 11/04/22 11:48 Comment rechecked vitals because pt moved from bed to chair and felt light headed. Charge nurse notified. 11/03/22 09:17 Intake & Output 11/03/22 11/04/22 11/04/22 23:59 11:59 23:59 Intake Total 740 / 990 Balance 740 / 990 Weight 90.4 kg Intake: Oral 740 / 990 Other: Urine Appearance Clear Comment voids independently Stool Size Moderate Stool Characteristics Soft Brown Voiding Methods Toilet Toilet Data Completed and Pending Completed studies during hospitalization [Text1]: I went over the results of her echocardiogram as well as her CTA of her head and neck. She has some none hemodynamic atherosclerotic changes in her internal carotid arteries. Echocardiogram showed normal LV function mildly dilated RV with some mild pulmonary hypertension and moderate tricuspid regurgitation. PFSH All Active Problems Deep vein thrombosis (DVT) of popliteal vein of left lower extremity (Acute) Discharge planning issues (Acute) Leucocytosis (Acute) Acute electrocardiogram changes (Acute) Bilateral pulmonary embolism (Acute) Syncope and collapse (Acute) Thyroid nodule (Acute) Amaurosis fugax of right eye (Acute) DVT (deep venous thrombosis) (Chronic) [facility] [place] 08/13-08/16/19 - L peroneal vein. 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 Moyer excellent result Spinal stenosis of lumbar region with neurogenic claudication (Chronic) Surgical History Biopsy of breast (03/17/89) laminectomy L4 (06/04/16) Bilateral laminectomy L4-5 with medial facetectomy; [facility] [place] Dr Matta 07/2019 extension of decompressive laminectomy Ligation of fallopian tube Status post lumbar spine surgery for decompression of spinal cord (08/10/19) L3-S1 Family History Mother , breast ca at age 83. Breast cancer VTE (venous thromboembolism) phlebitis in setting of trauma Social History Smoking/Tobacco Use Status: Never Second Hand Exposure: No Smoking risk assessment performed?: Yes Alcohol Intake: never Drug use: Never Household members: spouse Housing: house Number of Children: 2 Communication Needs: None current occupation: previously worked in [employer] Pets and animals: Yes Pets and animals: dog(s) Current gender identity: female What is your relationship status?: How often do you talk on the phone with friends or family?: three or more times per week Panel score (0-1 are the most socially isolated patients): 2 What type of physical activity do you participate in: none and other Duration: 15-30 minutes/day Frequency: 1-2 times per week Seatbelt use: always Drive intox or ride w/intox tilt tray driver: No Water heater temp set <120 deg: Yes Working smoke detector in home: Yes Fire extinguisher in home: Yes Carbon monox detector in home: Yes Do you feel safe at home: Yes Do you feel safe in your relationship?: Yes Time Spent with Patient Time Spent with Patient: <45 minutes Time was spent: preparing to see the patient(eg.review tests), ordering medications,tests, procedures, referring, communicating with other health resident care manager rn, indepentently interpreting results, counseling the patient and care coordination
--- NOTE | 2022-11-04 15:37 | DI.US_ITS ---
APPROVED REPORT EXAM: Comprehensive 2D, Doppler, and color-flow Echocardiogram Patient Location: In-Patient Room/Bed: 231 Craniologist: Kirstin Russell RDCS (AE) Indications: Pulmonary embolism with right sided heart strain, Chest pain Other Information Study Quality: Good Conclusion Normal left ventricular wall thickness and chamber size. Ejection fraction is 55 to 60%. Wall motio n is normal Right ventricle is borderline dilated with preserved systolic function Both atria are mildly dilated Aortic valve is mildly sclerotic and trileaflet without stenosis or regurgitation Normal mitral valve with trace regurgitation Normal tricuspid valve with moderate regurgitation. Estimated right ventricular systolic pressure is 49 mmHg Mildly dilated ascending aorta measuring 3.55 cm Wall motion Left Ventricle The left ventricle is normal size. The left ventricular systolic function is normal. The left ventric ular ejection fraction is within the normal range. There is normal left ventricular wall thickness. T here is normal LV segmental wall motion. There is no ventricular septal defect visualized. LVEF is 56 %. Right Ventricle Right ventricle is borderline dilated. The right ventricular systolic function is normal. Atria Left atrium is mildly dilated. Right atrium is mildly dilated. The interatrial septum is intact with no evidence for an atrial septal defect. Aortic Valve The aortic valve is mildly sclerotic Aortic valve is trileaflet. There is no aortic valvular stenosis . No aortic regurgitation is present. Mitral Valve The mitral valve is normal in structure. No evidence of mitral valve stenosis. Trace mitral regurgita tion. Tricuspid Valve The tricuspid valve is normal in structure. There is no tricuspid valve stenosis. Moderate tricuspid regurgitation. The RVSP is 49.4 mmHg. Pulmonic Valve The pulmonary valve is normal in structure. There is no pulmonic valvular stenosis. Trace pulmonic re gurgitation. Great Vessels The aortic root is normal in size. The ascending aorta is mildly dilated. Aortic arch is not well vis ualized. IVC is normal in size and collapses >50% with inspiration. Pericardium There is no pericardial effusion. 2D Dimensions IVSD d PLAX 0.90 cm F: 0.6-1.0 LVPW d PLAX 0.92 cm F: 0.6 - 1.0 LVID d PLAX 4.79 cm F: 3.8 - 5.2 LVDs 3.40 cm F: 2.2 - 3.5 Ao Root d 2.76 cm F: 2.7 - 3.3 RA Area A4C 13.58 cm2 Ao Asc Diam d 3.55 cm F: 2.3 - 3.1 LV EF Chavezichholz 55.3 % FS 28.75 % M-Mode TAPSE 2.10 cm (M/F) >1.7 LV Diastology MV E' medial 0.065 (>0.07 m/s) E/A Ratio 0.7 LV E/e MED 9.07 (<14) MV E Vmax 0.59 (0.4-1.3 m/s) MV E' lateral 0.059 (>0.1 m/s) MV A Vmax 0.85 (0.4-1.3 m/s) LV E/e LAT 10.03 (<14) MV E/E' medial 9.07 MV E/E' lateral 10.03 MV (E/E' average) 9.53 Aortic Valve LVOT Vmax 1.30 m/s AoV Area Vmax 2.69 cm2 LVOT Peak Grad 6.8 mmHg LVOT Mean Grad 3.4 mmHg LVOT Diam s 1.95 cm AoV Vmax 1.47 m/s Velocity Ratio 0.88 AoV Peak Grad 8.7 mmHg LVOT SV 67.30 mL AoV Mean Grad 5.1 mmHg AoV Area VTI 2.29 cm2 Mitral Valve MV DT 102 (160-240 msec) MV Vmax TIPS 0.96 m/s MV Mean Grad 1.4 (<2mmHg) MV VTI 0.269 m Pulmonary Valve PV Mean Grad 2.8 mmHg RVOT Peak Gr. 2.01 mmHg RVOT Mean Gr. 1.00 mmHg RVOT VTI 0.147 m RVOT Vmax 0.71 m/s Tricuspid Valve TR Peak Grad 46.4 mmHg TR Vmax 3.41 m/s RA Pressure 3.00 mmHg RVSP (TR) 49.4 mmHg
--- NOTE | 2022-11-04 16:24 | PDOC.CMDIS ---
Date of service: 11/04/22 Time of Service: 16:24 LACE Index Scoring Tool Questions: Length of Stay (in days): 3 Was the patient admitted via the E.D.?: Yes Comorbidities: Liver or Renal Disease E.D. Visits: 1 Answers: Total Score: 12 Risk of Readmission: High Risk Care Management Discharge Plan Reason for Hospitalization: Acute PE with Right Heart Strain Discharge Plan: Nini will be discharged home with no new services. She will follow up with her community providers and plan of care and transport with family. Patient/Family Education Needs: Review of discharge instructions including medications, limitations, activity, follow up plan of care and discuss Ask Me Three.
--- NOTE | 2022-11-05 17:39 | PT.INNT ---
PT Notes Visit Reasons: Acute PE with R Heart Strain patient discharged to home on 11/04/2022. NO skilled services were provided for this epsiode of care.
== END 2022-11-04 14:45 | disposition home or self-care (01) | DRG 176 ==
LOC: ER 16:59 → MS 17:00
PROVIDERS: Admitting Provider Internal Medicine; Emergency Provider Nurse Practitioner Family; PCP Family Medicine; Visit Provider Internal Medicine
DX: I26.99 Other pulmonary embolism without acute cor pulmonale (principal); I82.432 Acute embolism and thrombosis of left popliteal vein; R94.31 Abnormal electrocardiogram [ECG] [EKG]; D72.829 Elevated white blood cell count, unspecified; Z86.718 Personal history of other venous thrombosis and embolism; H81.09 Meniere's disease, unspecified ear; E78.5 Hyperlipidemia, unspecified; E04.1 Nontoxic single thyroid nodule; M54.40 Lumbago with sciatica, unspecified side; G89.29 Other chronic pain; M48.062 Spinal stenosis, lumbar region with neurogenic claudication; M21.372 Foot drop, left foot; I12.9 Hypertensive chronic kidney disease with stage 1 through stage 4 chronic kidney disease, or unspecified chronic kidney disease; N18.9 Chronic kidney disease, unspecified; E55.9 Vitamin D deficiency, unspecified; M17.11 Unilateral primary osteoarthritis, right knee; I07.1 Rheumatic tricuspid insufficiency; I65.23 Occlusion and stenosis of bilateral carotid arteries
CPT/HCPCS: 36415; 70496; 70498; 71275; 80048; 80053; 84145; 87637; 93005; 93306; 96365; 96366; 99285; 83735; 83880; 84484; 85025; 85379; 85610; 85730; 86140; 93010; 93970; 94667; 94668; 99223; 99232; 99233; 99239; J3490

== ENCOUNTER → 2023-02-05 02:04 | Outpatient (CLI) | payer MEDICARE, OTHER, SELFPAY ==
--- NOTE | 2023-02-05 10:05 | DI.US_ITS ---
APPROVED REPORT EXAM: Comprehensive 2D, Doppler, and color-flow Echocardiogram Patient Location: Out-Patient Curator [employer]: Nii Reynolds RDCS (AE) Indications: Pulmonary HTN from Pulmonary Embolism, Other Information Study Quality: Adequate Conclusion Normal left ventricular wall thickness and chamber size. Ejection fraction is 55%. Wall motion is n ormal Normal right ventricular size and systolic function Both atria are normal in size Aortic valve is mildly sclerotic and trileaflet without stenosis or regurgitation Borderline dilated ascending aorta 3.46 cm Estimated right ventricular systolic pressure is 20 mmHg Wall motion Left Ventricle The left ventricle is normal size. The left ventricular systolic function is normal. The left ventric ular ejection fraction is within the normal range. There is normal left ventricular wall thickness. T here is normal LV segmental wall motion. There is no ventricular septal defect visualized. LVEF is 55 %. Right Ventricle The right ventricle is normal size. The right ventricular systolic function is normal. Atria The left atrium size is normal. The right atrium size is normal. The interatrial septum is intact wit h no evidence for an atrial septal defect. Aortic Valve The Aortic valve is mildly sclerotic. Aortic valve is trileaflet. There is no aortic valvular stenosi s. No aortic regurgitation is present. Mitral Valve The mitral valve is normal in structure. No evidence of mitral valve stenosis. Trace mitral regurgita tion. Tricuspid Valve The tricuspid valve is normal in structure. There is no tricuspid valve stenosis. Mild tricuspid reg urgitation. The RVSP is 20.1 mmHg. Pulmonic Valve The pulmonary valve is normal in structure. There is no pulmonic valvular stenosis. Trace pulmonic re gurgitation. Great Vessels The aortic root is normal in size. The ascending aorta is mildly dilated. Ascending aorta is not well visualized. IVC is normal in size and collapses >50% with inspiration. Pericardium There is no pericardial effusion. 2D Dimensions IVSD d PLAX 1.00 cm F: 0.6-1.0 Ao Root d 2.86 cm F: 2.7 - 3.3 LVPW d PLAX 1.00 cm F: 0.6 - 1.0 Ao Asc Diam d 3.46 cm F: 2.3 - 3.1 LVID d PLAX 4.46 cm F: 3.8 - 5.2 LVDs 3.19 cm F: 2.2 - 3.5 LV EF Teichholz 55.1 % FS 28.50 % LV EDV (Teich) 90.3 mL LV ESV (Teich) 40.5 mL M-Mode TAPSE 2.61 cm (M/F) >1.7 Auto EF LV EDV A4C 70.3 mL LV EDV A2C 65.1 mL LV EDV BP 67.6 mL LV ESV A4C 32.9 mL LV ESV A2C 31.4 mL LV ESV BP 32.2 mL LVEF(%) A4C 53.2 % LVEF(%) A2C 51.8 % LVEF(%) BP 52.4 % LV SV A4C 37.4 ml LV SV A2C 33.7 ml LV SV BP 35.4 ml LV CO A4C 2.8 L/min LV CO A2C 2.4 L/min LV CO BP 2.6 L/min HR A4C 75.29 BPM HR A2C 72.12 BPM LV EDV Index (BP) LV Diastology MV E' medial 0.092 (>0.07 m/s) MV E Vmax 0.41 (0.4-1.3 m/s) MV E/E' MED 4.45 (<14) MV A Vmax 0.70 (0.4-1.3 m/s) MV E' lateral 0.046 (>0.1 m/s) E/A Ratio 0.6 MV E/E' LAT 8.81 (<14) MV E' Average 0.069 m/s MV E/E'(average) 5.91 Aortic Valve AoV Vmax 1.15 m/s LVOT Vmax 1.02 m/s AoV Peak Grad 5.3 mmHg LVOT Peak Grad 4.1 mmHg AoV Area (Vmax) 2.80 cm2 LVOT VTI 0.219 m AoV VTI 0.227 m LVOT Mean Grad 2.0 mmHg AoV Mean Sunny. 0.78 m/s LVOT SV 69.21 mL AoV Mean Grad 2.8 mmHg LVOT Diam s 2.00 cm AoV Area (VTI) 3.05 cm2 Velocity Ratio 0.89 Mitral Valve MV DT 334 (160-240 msec) MV Vmax TIPS 0.72 m/s MV Mean Grad 0.8 (<2mmHg) MV VTI 0.131 m Pulmonary Valve PV Vmax 0.93 (0.5-1.5 m/s) RVOT Vmax 0.75 m/s PV Peak Grad 3.4 mmHg RVOT Peak Gr. 2.3 mmHg PV Mean Sunny 0.59 m/s RVOT VTI 0.151 m PV Mean Grad 1.6 mmHg RVOT Mean Gr. 1.0 mmHg Tricuspid Valve RA Pressure 3.00 mmHg TR Vmax 2.07 m/s TV S' 0.17 m/s TR Peak Grad 17.1 mmHg RVSP (TR) 20.1 mmHg
== END ==
PROVIDERS: PCP Family Medicine; Visit Provider Student in an Organized Health Care Education/Training Program
DX: I26.99 Other pulmonary embolism without acute cor pulmonale (principal)
CPT/HCPCS: 93306

== ENCOUNTER → 2023-02-10 09:23 | Outpatient (BNVA) | payer MEDICARE, OTHER, SELFPAY | PROVIDERS: PCP Family Medicine; Referring Provider Family Medicine; Visit Provider Student in an Organized Health Care Education/Training Program | DX: I26.99 Other pulmonary embolism without acute cor pulmonale (principal); I82.432 Acute embolism and thrombosis of left popliteal vein; I27.20 Pulmonary hypertension, unspecified; Z79.01 Long term (current) use of anticoagulants | CPT/HCPCS: 99215 ==

== ENCOUNTER 2023-02-10 19:19 | Outpatient (CLI) | payer MEDICARE, OTHER, SELFPAY ==
[2023-02-10 11:16] LABS: D-Dimer 1033 ng/mlFEU (<500)
[2023-02-11 10:03] LABS: Antithrombin 3, Funct. 104 % (85-125)
[2023-02-11 15:44] LABS: Antithrombin Activity, Plasma 95 % (80 - 130); Protein S Ag, Free 100 % (65 - 160)
[2023-02-12 11:22] LABS: Protein C, Functional 105 % (71-199); Protein S, Functional 121 % (64-147)
[2023-02-13 13:03] LABS: Factor V Leiden(R506Q) Mut Negative (Negative); Prothrombin G20210A Mutation Negative (Negative)
[2023-02-14 12:48] LABS: Protein C Ag, P 97 % (72-160)
[2023-02-17 18:10] LABS: Thrombin-Antithrombin Complex 2.6 ng/mL
== END 2023-02-10 19:20 | disposition home or self-care (01) ==
LOC: LBO 19:27
PROVIDERS: PCP Family Medicine; Visit Provider Student in an Organized Health Care Education/Training Program
DX: I26.99 Other pulmonary embolism without acute cor pulmonale (principal)
CPT/HCPCS: 36415; 81240; 81241; 83520; 85300; 85302; 85305; 85306; 99215; 85303; 85379

== ENCOUNTER 2023-03-20 13:08 | Outpatient (CLI) | payer MEDICARE, OTHER, SELFPAY ==
--- NOTE | 2023-03-20 10:00 | DI.RAD_ITS ---
Exam(s) XR KNEE RT 4V AP,LAT,DAYRON,PAT EXAM: XR KNEE RT 4V AP,LAT,DAYRON,PAT CLINICAL HISTORY: knee pain. TECHNIQUE: 2D digital imaging was performed of the right knee. Four views obtained. Merchant, AP, la teral and PA tunnel views were obtained. COMPARISON: CR XR KNEE RT 3V AP,LAT,DAYRON from 01/10/2020 FINDINGS: BONES: No acute fracture is present. No bony destructive lesion is seen. There enthesophytes seen in the superior patella. JOINTS: The knee is normally aligned. There is moderate narrowing of the femoral tibial joint and mil d narrowing of the patellofemoral joint. There osteophytes seen at both the posterior patella and th e lateral femoral tibial joint. No joint effusion is seen. SOFT TISSUE: A well corticated osseous density is seen lateral to the patella which appears chronic. IMPRESSION: Moderate degenerative changes seen in the right knee. DATA REPOSITORY: RADIATION DOSE DELIVERED:
== END 2023-03-20 13:09 | disposition home or self-care (01) ==
LOC: DIORS 13:08
PROVIDERS: PCP Family Medicine; Referring Provider Family Medicine; Visit Provider Student in an Organized Health Care Education/Training Program
DX: M17.11 Unilateral primary osteoarthritis, right knee (principal)
CPT/HCPCS: 20610; 73564; J1040

== ENCOUNTER → 2023-03-24 09:28 | Outpatient (BNVA) | payer MEDICARE, OTHER, SELFPAY | PROVIDERS: PCP Family Medicine; Referring Provider Family Medicine; Visit Provider Student in an Organized Health Care Education/Training Program | DX: I82.432 Acute embolism and thrombosis of left popliteal vein (principal); I26.99 Other pulmonary embolism without acute cor pulmonale; I27.20 Pulmonary hypertension, unspecified | CPT/HCPCS: 99214 ==

== ENCOUNTER → 2023-07-28 02:30 | Outpatient (CLI) | payer MEDICARE, OTHER, SELFPAY ==
--- NOTE | 2023-07-28 08:12 | DI.US_ITS ---
Exam(s) US BREAST LT LIMITED MG MAMMO DIAGNOSTIC BI EXAM: MAMMO DIAGNOSTIC BI and U/S breast LT limited CLINICAL HISTORY: L sided palpable breast mass,n63.20. TECHNIQUE: Craniocaudal and mediolateral oblique Full Field Digital Mammography views with Computer Aided Diagnosis followed by Tomosynthesis and left breast ultrasound. COMPARISON: Comparison is made with prior examinations. FINDINGS: Mammography/Tomosynthesis: Masses/Architectural Distortion: There are several stable nodular densities in both breasts. There i s a new small well-circumscribed nodule in the upper outer quadrant of the left breast corresponding to the palpable abnormality. No areas of architectural distortion are seen. Microcalcifictions: No suspicious pleomorphic-type are seen. Skin Thickening/Nipple Retraction: None. Limited left breast US: Echotexture: Normal appearance of the glandular tissue. Shadowing: No suspicious foci. Cyst: In the subcutaneous tissues of the left breast 6 cm from the nipple at the 2 o'clock position t here is a 0.3 x 0.4 cm nodule which corresponds to the palpable abnormality. Its location and appear ance is suggestive of a sebaceous cyst. Solid lesions: None seen. Ductal dilation: None. IMPRESSION: 1. No evidence of malignancy is noted. Findings most suspicious of a benign lesion such as a sebaceou s cyst. 2. Unless there is more urgent need, follow-up screening mammography is recommended, as per [place] [employer] guidelines. 3. The findings were discussed with the patient on the date of the examination. BI-RADS Category 2 - Benign Findings Breast Density - Category B - Scattered areas of fibroglandular density Breast density Category C or D implies that the patient has dense breast tissue. Dense breast tissue can make it harder to find cancer on a mammogram. Dense breast tissue is also associated with an incr eased risk of breast cancer. This information about the result of the mammogram report was provided to the patient to raise their awareness. Use this report when you speak with the patient about their risks for breast cancer, which includes their family history. At that time, you may recommend additional screening tests (Ultrasoun d or MRI) as these tests may add significant information. A negative radiographic report should not delay biopsy if a dominant or clinically suspicious mass is present. Up to ten percent of cancers are not identified on mammography. A negative report may reinforce clinical impression. Adenosis and dense breasts may obscure an underlying neoplasm. False positive reports average 6 to 10%. Patient will receive a letter notifying them of these results.
== END ==
PROVIDERS: PCP Family Medicine; Visit Provider Family Medicine
DX: N63.21 Unspecified lump in the left breast, upper outer quadrant (principal); Z12.31 Encounter for screening mammogram for malignant neoplasm of breast
CPT/HCPCS: 76642; 77062; 77066; G0279

== ENCOUNTER 2024-02-16 04:36 | Outpatient (CLI) | payer MEDICARE, OTHER, SELFPAY ==
[2024-02-16 10:55] LABS: Anion Gap 10.2 mmol/L (3-11); BUN 20 mg/dL (7-18); CO2 26.8 mmol/L (21.0-32.0); CREATININE 1.2 mg/dL (0.55-1.02); Calcium 9.4 mg/dL (8.5-10.1); Chloride 107 mmol/L (98-107); Estimated GFR 45.48 (mL/min/1.73m2); Glucose 111 mg/dL (74-106); Potassium 4.1 mmol/L (3.5-5.1); Sodium 144 mmol/L (136-145)
== END 2024-02-16 04:37 | disposition home or self-care (01) ==
LOC: LBO 04:36
PROVIDERS: PCP Family Medicine; Referring Provider Family Medicine; Visit Provider Family Medicine
DX: N18.30 Chronic kidney disease, stage 3 unspecified (principal)
CPT/HCPCS: 36415; 80048

== ENCOUNTER → 2024-03-01 14:49 | Outpatient (BNVA) | payer MEDICARE, OTHER, SELFPAY | PROVIDERS: PCP Family Medicine; Referring Provider Family Medicine; Visit Provider Student in an Organized Health Care Education/Training Program | DX: M17.11 Unilateral primary osteoarthritis, right knee (principal) | CPT/HCPCS: 20610; J1010 ==

== ENCOUNTER → 2024-09-03 08:40 | Outpatient (BNVA) | payer MEDICARE, OTHER, SELFPAY | PROVIDERS: PCP Family Medicine; Referring Provider Family Medicine; Visit Provider Physician Assistant | DX: M17.11 Unilateral primary osteoarthritis, right knee (principal); M76.31 Iliotibial band syndrome, right leg; M70.51 Other bursitis of knee, right knee; M25.551 Pain in right hip | CPT/HCPCS: 20610; 99213; J1010 ==

== ENCOUNTER → 2024-12-28 10:25 | Outpatient (BNVA) | payer MEDICARE, OTHER, SELFPAY | PROVIDERS: PCP Family Medicine; Referring Provider Family Medicine; Visit Provider Physician Assistant | DX: M17.11 Unilateral primary osteoarthritis, right knee (principal); S80.12XA Contusion of left lower leg, initial encounter; W10.8XXD Fall (on) (from) other stairs and steps, subsequent encounter; Y93.E2 Activity, laundry | CPT/HCPCS: 99212; 20610; J1010 ==

== ENCOUNTER 2025-02-14 04:10 | Outpatient (CLI) | payer MEDICARE, OTHER, SELFPAY ==
[2025-02-14 11:56] LABS: ALT 20 U/L (10-49); AST 26 U/L (<34); Albumin 4.3 g/dL (3.2-5.0); Alkaline Phosphatase 74 U/L (46-116); Anion Gap 7.6 mmol/L (3-11); BUN 18 mg/dL (9-23); Bilirubin, Total 0.60 mg/dL (0.2-1.2); CO2 27.4 mmol/L (20.0-31.0); Calcium 9.6 mg/dL (8.3-10.6); Chloride 110 mmol/L (98-107); Glucose 110 mg/dL (74-106); Potassium 4.1 mmol/L (3.5-5.1); Sodium 145 mmol/L (136-145); Total Protein 7.4 g/dL (5.7-8.2)
== END 2025-02-14 04:11 | disposition home or self-care (01) ==
PROVIDERS: PCP Family Medicine; Referring Provider Family Medicine; Visit Provider Family Medicine
DX: I10 Essential (primary) hypertension (principal)
CPT/HCPCS: 36415; 80053